=== PATIENT | female | born 1990 | race Caucasian/White ===

== ENCOUNTER 2016-05-14 08:45 | Emergency (ER) | payer MEDICAID, OTHER ==
[~2016-05-14] VITALS: Wt 65.0 kg
[~2016-05-14 08:45] MED LIST: CEPH-443 PO; IBUP-1542 PO; METF-382 PO; PHEN-538 PO
--- NOTE | 2016-05-14 09:22 | ERD ---
ER Documentation Chief Complaint Date/Time DATE: 05/14/16 TIME: 09:17 Chief Complaint R SIDE BUTTOCKS ABSCESS FOR 4 DAYS. SOME BLEEDING NO FEVERS HPI 25-year-old female with a history of diabetes presents to the emergency department complaining of right-sided rectal pain and swelling. Patient states the symptoms began 4 days ago and have gradually worsened. Patient states she is currently a constant 7 out of 10 pain located to the right buttock area and worse with pressure to the area or sitting down. Patient has attempted to treat her pain symptoms with Tylenol at home with little relief. Patient denies any fever, chills, nausea, vomiting, diarrhea, abdominal pain, or bleeding. Patient up-to-date on all vaccinations. Patient states that she has been noncompliant with diabetic medication therapy due to her insurance. Patient is requesting a refill for metformin today. ROS All systems reviewed and are negative except as per history of present illness. Medications Home Meds Active Scripts Bacitracin* (Bacitracin Oint (UD)*) 1 Applic Oint, 1 APPLIC TOP ONCE for 5 Days , PKT APPLY TO Prov:LIV BISWAS PA-C 05/14/16 Naproxen* (Naprosyn*) 500 Mg Tablet, 500 MG PO BID for 7 Days, TAB Prov:LIV BISWAS PA-C 05/14/16 Metformin Hcl* (Metformin Hcl*) 500 Mg Tablet, 500 MG PO WITH BREAKFAST DINNE, # 60 TAB Prov:LIV BISWAS PA-C 05/14/16 Trimethoprim-Sulfamethoxazole* (Bactrim*) 400-80 Mg Tab, 1 TAB PO BID, #20 TAB Prov:LIV BISWAS PA-C 05/14/16 Cephalexin* (Cephalexin*) 500 Mg Capsule, 500 MG PO Q8, #21 CAP Prov:LIV BISWAS PA-C 05/14/16 Ibuprofen* (Motrin*) 600 Mg Tab, 600 MG PO Q6, #14 TAB Prov:SHARI ARIAS MD 10/30/14 Phenazopyridine Hcl* (Pyridium*) 200 Mg Tab, 200 MG PO TID Y for DYSURIA, #6 TAB Prov:SHARI ARIAS MD 10/30/14 Cephalexin* (Keflex*) 500 Mg Capsule, 500 MG PO QID for 7 Days, CAP Prov:SHARI ARIAS MD 10/30/14 Reported Medications Metformin Hcl* (Metformin Hcl*) 500 Mg Tablet, 500 MG PO BID, TAB 02/21/14 Allergies Allergies: Coded Allergies: No Known Allergies (Verified Allergy, Mild, 02/21/14) PMhx/Soc History of Surgery: Yes (C SECTION) Anesthesia Reaction: No Hx Neurological Disorder: No Hx Respiratory Disorders: No Hx Cardiac Disorders: No Hx Psychiatric Problems: No Hx Miscellaneous Medical Probl: Yes (DM) Hx Alcohol Use: No Hx Substance Use: No Hx Tobacco Use: No Physical Exam Vitals Vital Signs Date Time Temp Pulse Resp B/P Pulse Ox O2 Delivery O2 Flow Rate FiO2 05/14/16 08:49 98.2 94 20 134/81 98 Physical Exam Const: Well-developed, well-nourished, in no acute distress Head: Atraumatic Eyes: Normal Conjunctiva ENT: Normal External Ears, Nose and Mouth. Neck: Full range of motion..~ No meningismus. Resp: Clear to auscultation bilaterally Cardio: Regular rate and rhythm, no murmurs Abd: Soft, non tender, non distended. Normal bowel sounds Skin: 1.5 cm area of induration and fluctuance located within the right sided gluteal fold 2 cm from the anus. No evidence of hemorrhoid formation. No petechiae or rashes Back: No midline or flank tenderness Ext: No cyanosis, or edema Neur: Awake and alert Psych: Normal Mood and Affect Results 24 hrs Current Medications Medications (Trade) Dose Ordered Sig/Rey Route PRN Reason Start Time Stop Time Status Last Admin Dose Admin Lidocaine/ Epinephrine (Xylocaine 1%/ Epi (Mdv) 20 ml) 20 ml ONCE ONCE INFIL 05/14/16 09:30 05/14/16 09:31 Cancel Ibuprofen (Motrin) 600 mg ONCE ONCE PO 05/14/16 09:30 05/14/16 09:31 DC 05/14/16 09:18 Lidocaine/ Epinephrine (Xylocaine 1%/ Epi) 20 ml ONCE INJ 05/14/16 09:31 05/14/16 09:32 DC Procedures/MDM Abscess Incision and Drainage with irrigation by me: Location: Right-sided gluteal fold Anesthesia: Local 1% Lidocaine Technique: Irrigated. Disrupted loculations w/ instrumentation Packing: None Complications: Neurovascularly intact post procedure 48 hour wound check. Scar minimization instructions given. Patient's skin symptoms have stabilized while they have been evaluated in the department and are appropriate for outpatient care and work up. Exam and w/u not consistent w/ sepsis, deep space infection, or foreign body. Low suspicion for perianal fistula, rectal prolapse, anal fissure. Patient counseled on the importance of continuing antibiotic therapy. Patient provided with a refill on metformin. Patient return within 48 hours for wound check. Based on patient's history of present illness and physical examination the decision was made to discharge. The patient was re-evaluated after ED treatment and stabilizing measures, and symptoms have improved. There is no evidence of life threatening injuries or illnesses at this time. On re-examination, patient resting in no distress, stable vital signs, reports feeling better and safe for discharge with outpatient follow up with PMD in 1-2 days. Patient given return precautions. Departure Diagnosis: Primary Impression: Abscess Additional Impressions: Buttock pain Diabetes Diabetes mellitus type: type 2 Diabetes mellitus complication status: with unspecified complications Diabetes mellitus shelter insulin use: unspecified long term care phlebotomist insulin use status Qualified Code: E11.8 - Type 2 diabetes mellitus with complication, unspecified shelter insulin use status LIV BISWAS PA-C May 14, 2016 09:22
[2016-05-14] MEDS ORDERED: IBUPROFEN 600 MG TAB PO ONE (09:30)
[2016-05-14] MEDS ORDERED: LIDOCAINE 1%/EPI (MDV) 20 ML INJ INFIL ONE (09:30)
[2016-05-14] MEDS ORDERED: LIDOCAINE 1%/EPI 30 ML INJ INJ SCH (09:31)
[2016-05-14] MEDS ORDERED: METF-382 PO (09:44)
[2016-05-14] MEDS ORDERED: BACTRIM PO (09:44)
[2016-05-14] MEDS ORDERED: BACITUD TOP (09:44)
[2016-05-14] MEDS ORDERED: NAPR-260 PO (09:44)
[2016-05-14] MEDS ORDERED: CEPH500C PO (09:44)
== END 2016-05-14 09:55 | disposition home or self-care (01) ==
LOC: FTE 08:45
DX: L02.31 Cutaneous abscess of buttock (principal); M54.5 Low back pain; E11.8 Type 2 diabetes mellitus with unspecified complications; Z79.84 Long term (current) use of oral hypoglycemic drugs
CPT/HCPCS: 10061; Z7502; Z7610

== ENCOUNTER 2016-05-16 11:03 | Emergency (ER) | payer MEDICAID ==
[~2016-05-16] VITALS: Wt 71.0 kg
[~2016-05-16 11:03] MED LIST changes: +BACITUD TOP; +BACTRIM PO; +CEPH500C PO; +NAPR-260 PO
[2016-05-16] MEDS ORDERED: FAMOTIDINE 20 MG TAB PO ONE (11:30)
[2016-05-16 11:41] LABS: URINE BLOOD (Dip) POC Negative (NEGATIVE)
[2016-05-16 13:24] VITALS: TEMP 98.1
--- NOTE | 2016-05-16 14:14 | ERD ---
ER Documentation Chief Complaint Date/Time DATE: 05/16/16 TIME: 14:07 Chief Complaint LOWER ABD PAIN WITH N/V HPI This is a 25-year-old female presenting to the emergency department for wound recheck. Patient states she was here 2 days ago for gluteal abscess incision and drainage. Patient states she was told to come back in 2 days for wound check. No fever, erythema or warmth around the area. Patient is currently on Bactrim and Keflex. Patient states last night she had lower abdominal pain with nausea today symptoms have resolved. Currently patient denies any nausea, vomiting. Or abdominal pain. Patient states she is having some acid reflux. Patient also has history of type 2 diabetes and recently started back on her metformin. Patient does not check her blood glucose at home. ROS All systems reviewed and are negative except as per history of present illness. Medications Home Meds Active Scripts Bacitracin* (Bacitracin Oint (UD)*) 1 Applic Oint, 1 APPLIC TOP ONCE for 5 Days , PKT APPLY TO Prov:LIV BISWAS-Zach 05/14/16 Naproxen* (Naprosyn*) 500 Mg Tablet, 500 MG PO BID for 7 Days, TAB Prov:LIV BISWAS-C 05/14/16 Metformin Hcl* (Metformin Hcl*) 500 Mg Tablet, 500 MG PO WITH BREAKFAST DINNE, # 60 TAB Prov:LIV BISWAS-Zach 05/14/16 Trimethoprim-Sulfamethoxazole* (Bactrim*) 400-80 Mg Tab, 1 TAB PO BID, #20 TAB Prov:LIV BISWAS PA-C 05/14/16 Cephalexin* (Cephalexin*) 500 Mg Capsule, 500 MG PO Q8, #21 CAP Prov:LIV BISWAS PA-C 05/14/16 Ibuprofen* (Motrin*) 600 Mg Tab, 600 MG PO Q6, #14 TAB Prov:SHARI ARIAS MD 10/30/14 Phenazopyridine Hcl* (Pyridium*) 200 Mg Tab, 200 MG PO TID Y for DYSURIA, #6 TAB Prov:SHARI ARIAS MD 10/30/14 Cephalexin* (Keflex*) 500 Mg Capsule, 500 MG PO QID for 7 Days, CAP Prov:SHARI ARIAS MD 10/30/14 Reported Medications Metformin Hcl* (Metformin Hcl*) 500 Mg Tablet, 500 MG PO BID, TAB 02/21/14 Allergies Allergies: Coded Allergies: No Known Allergies (Verified Allergy, Mild, 02/21/14) PMhx/Soc History of Surgery: Yes (C SECTION) Anesthesia Reaction: No Hx Neurological Disorder: No Hx Respiratory Disorders: No Hx Cardiac Disorders: No Hx Psychiatric Problems: No Hx Miscellaneous Medical Probl: Yes () Hx Alcohol Use: No Hx Substance Use: No Hx Tobacco Use: No Physical Exam Vitals Vital Signs Date Time Temp Pulse Resp B/P Pulse Ox O2 Delivery O2 Flow Rate FiO2 05/16/16 13:24 98.1 05/16/16 11:06 98.0 81 18 153/88 99 Physical Exam Const: Acute not ill-appearing Head: Atraumatic Eyes: Normal Conjunctiva ENT: Normal External Ears, Nose and Mouth. Neck: Full range of motion..~ No meningismus. Resp: Clear to auscultation bilaterally Cardio: Regular rate and rhythm, no murmurs Abd: Soft, non tender, non distended. Normal bowel sounds Skin: Small area of incision to right gluteal fold near anus. No fluctuance, surrounding erythema or warmth. Back: No midline or flank tenderness Ext: No cyanosis, or edema Neur: Awake and alert Psych: Normal Mood and Affect Results 24 hrs Laboratory Tests Test 05/16/16 11:40 05/16/16 12:41 Bedside Urine pH (LAB) 6.0 Bedside Urine Protein (LAB) 1+ Bedside Urine Glucose (UA) 0.50% Bedside Urine Ketones (LAB) 4+ Bedside Urine Blood Negative Bedside Urine Nitrite (LAB) Negative Bedside Urine Leukocyte Esterase (L Negative Bedside Glucose 230mg/dL Current Medications Medications (Trade) Dose Ordered Sig/Rey Route PRN Reason Start Time Stop Time Status Last Admin Dose Admin Famotidine (Pepcid) 20 mg ONCE ONCE PO 05/16/16 11:30 05/16/16 11:31 DC 05/16/16 11:40 Procedures/MDM ED COURSE: The patient was stable throughout ED course. I kept the patient and/or family informed of laboratory and diagnostic imaging results throughout the ED course. Laboratory Urine dip 4+ ketones, 1+ protein, 0.5% glucose Urine negative Accu-check is 230. MDM: This is a 25-year-old female presenting to the emergency department for wound recheck. Wound shows no evidence of infection, foreign body, neurologic injury, vascular injury, open joint or tendon laceration. Patient appropriate for outpatient follow up. Instructed patient to continue taking medications as prescribed. Remains afebrile. Patient had lower abdominal pain with nausea and vomiting yesterday. No symptoms today. Patient currently denies abdominal pain, nausea, vomiting or diarrhea. Urine shows 4+ ketones and Accu-Chek 230. Patient is stable and appropriate for discharge home. Low suspicion for cellulitis, deep space infection, , UTI or pyelonephritis. Patient is appropriate for outpatient management. Return to ED for any high fever, chest pain, difficulty breathing, shortness breath, wheezing, vomiting, diarrhea, abdominal pain or any new or worsening symptoms. Patient verbalizes understanding. All questions answered at discharge. Departure Diagnosis: Primary Impression: Wound check, abscess Additional Impression: Diabetes Diabetes mellitus type: type 2 Diabetes mellitus complication status: with unspecified complications Diabetes mellitus adjunct faculty for medical terminology insulin use: unspecified snf insulin use status Qualified Code: E11.8 - Type 2 diabetes mellitus with complication, unspecified snf insulin use status Condition: Stable Patient Instructions: Wound Care, DIABETES, General Info Additional Instructions: Return to ED for any high fever, chest pain, difficulty breathing, shortness breath, wheezing, vomiting, diarrhea, abdominal pain or any new or worsening symptoms. Drink plenty of fluids Call your primary care doctor TOMORROW for an appointment during the next 2-3 days.See the doctor sooner or return here if your condition worsens before your appointment time. JOSELINE SANTOS NP May 16, 2016 14:14
== END 2016-05-16 13:25 | disposition home or self-care (01) ==
LOC: FTE 11:03
DX: Z48.01 Encounter for change or removal of surgical wound dressing (principal); E11.8 Type 2 diabetes mellitus with unspecified complications; Z79.84 Long term (current) use of oral hypoglycemic drugs
CPT/HCPCS: 81003; 82962; Z7502; Z7610; 99282

== ENCOUNTER 2016-09-14 16:23 | Emergency (ER) | payer MEDICAID, OTHER ==
[~2016-09-14] VITALS: Ht 154.9 cm; Wt 65.5 kg
[~2016-09-14 16:23] MED LIST changes: -METF-382 PO; +METF500T4 PO
[2016-09-14 16:29] VITALS: Ht 154.9 cm; Wt 65.5 kg
[2016-09-14 18:47] LABS: BASOPHILS % 0.5 % (0.0-2.0); EOSINOPHILS # 0.1 10^3/ul (0.0-0.5); EOSINOPHILS % 1.5 % (0.0-7.0); HEMATOCRIT 42.2 % (37.0-47.0); HEMOGLOBIN 14.5 g/dl (12.0-16.0); LYMPHOCYTES # 2.7 10^3/ul (0.8-2.9); MEAN CORPUSCULAR HEMOGLOBIN 26.9 pg (29.0-33.0); MEAN CORPUSCULAR HGB CONC 34.4 g/dl (32.0-37.0); MEAN CORPUSCULAR VOLUME 78.3 fl (82.0-101.0); MEAN PLATELET VOLUME 9.8 fl (7.4-10.4); MONOCYTE # 0.5 10^3/ul (0.3-0.9); MONOCYTES % 6.4 % (0.0-11.0); NEUTROPHIL # 4.8 10^3/ul (1.6-7.5); NEUTROPHILS % 58.4 % (39.0-77.0); PLATELET COUNT 372 10^3/UL (140-415); RED BLOOD COUNT 5.39 10^6/ul (4.20-5.40); RED CELL DISTRIBUTION WIDTH 12.2 % (11.5-14.5); WHITE BLOOD COUNT 8.2 10^3/ul (4.8-10.8)
[2016-09-14 19:08] LABS: ALANINE AMINOTRANSFERASE 33 IU/L (13-69); ALBUMIN 4.4 g/dl (3.3-4.9); ALBUMIN/GLOBULIN RATIO 1.29; ALKALINE PHOSPHATASE 116 IU/L (42-121); ANION GAP 17 (8-16); ASPARTATE AMINO TRANSFERASE 14 IU/L (15-46); BILIRUBIN,INDIRECT 0.3 mg/dl (0-1.1); BILIRUBIN,TOTAL 0.3 mg/dl (0.2-1.3); BLOOD UREA NITROGEN 14 mg/dl (7-20); CALCIUM 9.1 mg/dl (8.4-10.2); CARBON DIOXIDE 27 mmol/L (21-31); CHLORIDE 94 mmol/L (97-110); CREATININE 0.48 mg/dl (0.44-1.00); POTASSIUM 3.9 mmol/L (3.5-5.1); SODIUM 134 mmol/L (135-144); TOTAL PROTEIN 7.8 g/dl (6.1-8.1)
[2016-09-14 19:16] LABS: GLUCOSE 448 mg/dl (70-220)
[2016-09-14] MEDS ORDERED: SOD CHLORIDE 0.9% 1,000 ML IV STA (19:17)
--- NOTE | 2016-09-14 19:24 | RADRPT ---
PROCEDURE: XR Chest. CLINICAL INDICATION: Chest pain. TECHNIQUE: Single frontal view of the chest. COMPARISON: None. FINDINGS: Hypoinflated lungs accentuate pulmonary vascular markings and the cardiac silhouette. The cardiomediastinal silhouette is within normal limits. Pulmonary vascular crowding at the bilater al lung bases. The lungs are clear. No signs of pleural fluid or pneumothorax are seen. The osseous structures and soft tissues are unremarkable. IMPRESSION: 1. Hypoinflated lungs. 2. No evidence for active cardiopulmonary disease. RPTAT: [facility] Physician Kenisha Date Time Electronically viewed and signed by Physician Kenisha on 09/14/2016 19:24 RS/
[2016-09-14 19:38] LABS: TROPONIN-I < 0.012 ng/ml (0.00-0.12)
--- NOTE | 2016-09-14 19:52 | ERD ---
ER Documentation Chief Complaint Date/Time DATE: 09/14/16 TIME: 19:52 Chief Complaint PT with Intermittent CP X 2 week radiating to L arm, sent by PCP. HPI This is a 26-year-old female presenting to the emergency department complaining of intermittent chest pain for the past 2 weeks. Patient describes it as intermittent chest pain, moderate in severity radiating down her left arm with associated numbness. Patient denies any shortness of breath. She denies any history of chest pain, anxiety. Patient denies any history of hypertension however she states that she does have a history of prediabetes, she states she does not want any medications. Patient states that her last meal was a bag of hot spicy cheetos does within an hour prior to being seen ROS All systems reviewed and are negative except as per history of present illness. Medications Home Meds Active Scripts Metformin* (Glucophage*) 500 Mg Tab, 500 MG PO BID, #60 TAB Prov:KELSY KERNS PA-C 09/14/16 Bacitracin* (Bacitracin Oint (UD)*) 1 Applic Oint, 1 APPLIC TOP ONCE for 5 Days , PKT APPLY TO Prov:LIV BISWAS PA-C 05/14/16 Naproxen* (Naprosyn*) 500 Mg Tablet, 500 MG PO BID for 7 Days, TAB Prov:LIV BISWAS PA-C 05/14/16 Metformin Hcl* (Metformin Hcl*) 500 Mg Tablet, 500 MG PO WITH BREAKFAST DINNE, # 60 TAB Prov:LIV BISWAS PA-C 05/14/16 Trimethoprim-Sulfamethoxazole* (Bactrim*) 400-80 Mg Tab, 1 TAB PO BID, #20 TAB Prov:LIV BISWAS PA-C 05/14/16 Cephalexin* (Cephalexin*) 500 Mg Capsule, 500 MG PO Q8, #21 CAP Prov:LIV BISWAS PA-C 05/14/16 Ibuprofen* (Motrin*) 600 Mg Tab, 600 MG PO Q6, #14 TAB Prov:SHARI ARIAS MD 10/30/14 Phenazopyridine Hcl* (Pyridium*) 200 Mg Tab, 200 MG PO TID Y for DYSURIA, #6 TAB Prov:SHARI ARIAS MD 10/30/14 Cephalexin* (Keflex*) 500 Mg Capsule, 500 MG PO QID for 7 Days, CAP Prov:SHARI ARIAS MD 10/30/14 Reported Medications Metformin Hcl* (Metformin Hcl*) 500 Mg Tablet, 500 MG PO BID, TAB 02/21/14 Allergies Allergies: Coded Allergies: No Known Allergies (Verified Allergy, Mild, 02/21/14) PMhx/Soc History of Surgery: Yes (C SECTION) Anesthesia Reaction: No Hx Neurological Disorder: No Hx Respiratory Disorders: No Hx Cardiac Disorders: No Hx Psychiatric Problems: No Hx Miscellaneous Medical Probl: Yes () Hx Alcohol Use: No Hx Substance Use: No Hx Tobacco Use: No Physical Exam Vitals Vital Signs Date Time Temp Pulse Resp B/P Pulse Ox O2 Delivery O2 Flow Rate FiO2 09/14/16 16:29 98.5 76 18 121/82 99 Physical Exam GENERAL: no acute distress, non-toxic appearing, sitting up in bed HENT: normocephalic/atraumatic EYES: conjunctiva is normal NECK: no noticeable or palpable swelling, no carotid bruits, no JVD CARDIOVASCULAR: RRR, good S1S2, no murmurs or gallops heard PULM: clear to auscultation, no use of accessory muscles, no crackles or wheezes. ABDOMEN: normal bowel sounds, abdomen soft and nontender EXT: no edema, cyanosis or clubbing MUSCULOSKELETAL: 5/5 strength, normal range of motion, no swollen or erythematous joints. NEURO: alert and oriented SKIN: no rashes, skin warm and dry, no erythematous areas PSYCH: normal mood and mentation, denies suicidal or homicidal ideation and thoughts Result Diagram: 09/14/16181409/14/161814 Results 24 hrs Laboratory Tests Test 09/14/16 18:15 09/14/16 20:55 09/14/16 22:06 09/14/16 23:06 White Blood Count 8.210^3/ul Red Blood Count 5.3910^6/ul Hemoglobin 14.5g/dl Hematocrit 42.2% Mean Corpuscular Volume 78.3fl Mean Corpuscular Hemoglobin 26.9pg Mean Corpuscular Hemoglobin Concent 34.4g/dl Red Cell Distribution Width 12.2% Platelet Count 99587^3/UL Mean Platelet Volume 9.8fl Neutrophils % 58.4% Lymphocytes % 33.0% Monocytes % 6.4% Eosinophils % 1.5% Basophils % 0.5% Nucleated Red Blood Cells % 0.0/100WBC Neutrophils # 4.810^3/ul Lymphocytes # 2.710^3/ul Monocytes # 0.510^3/ul Eosinophils # 0.110^3/ul Basophils # 0.010^3/ul Nucleated Red Blood Cells # 0.010^3/ul Sodium Level 134mmol/L Potassium Level 3.9mmol/L Chloride Level 94mmol/L Carbon Dioxide Level 27mmol/L Anion Gap 17 Blood Urea Nitrogen 14mg/dl Creatinine 0.48mg/dl Glucose Level 448mg/dl Calcium Level 9.1mg/dl Total Bilirubin 0.3mg/dl Direct Bilirubin 0.00mg/dl Indirect Bilirubin 0.3mg/dl Aspartate Amino Transf (AST/SGOT) 14IU/L Alanine Aminotransferase (ALT/SGPT) 33IU/L Alkaline Phosphatase 116IU/L Troponin I < 0.012ng/ml Total Protein 7.8g/dl Albumin 4.4g/dl Globulin 3.40g/dl Albumin/Globulin Ratio 1.29 Bedside Glucose 332mg/dL 332mg/dL 304mg/dL Current Medications Medications (Trade) Dose Ordered Sig/Rey Route PRN Reason Start Time Stop Time Status Last Admin Dose Admin Sodium Chloride (NS) 1,000 ml @ 2,000 mls/hr Q30M STAT IV 09/14/16 19:17 09/14/16 19:46 DC 09/14/16 19:39 Procedures/MDM This is a 26-year-old female presenting to the emergency department complaining of intermittent chest pain. Patient was found to have a glucose level of 458 today. IV access is established, patient was given 2 L of normal saline. After couple hours diarrhea checked the with Accu-Chek and glucose level went down to 302. There was no evidence of DKA or hyperosmolar state. Patient's CMP was unremarkable. I placed patient on metformin 500 mg twice daily and I discussed with her to follow-up with her primary care physician for further evaluation and management. In regards to her chest pain there was no evidence of ACS, pulmonary embolism, pneumonia. EKG was done in the ED there was no evidence of STEMI. Chest x-ray did not show any evidence of infiltrates, pneumothorax or pleural effusion. Troponin was negative. Patient did have hot spicy cheetos right prior to coming to the ER, gastritis, likely the cause of her chest pain. EKG: read and signed off by myself and dr. spencer Rate/Rhythm: [Normal Sinus Rhythm] QRS, ST, T-waves: [No changes consistent w/ acute ischemia] Impression: [No evidence of ischemia or arrhythmia] She is appropriate to be discharged home to follow-up with primary care physician. Discussed return to the ER for any worsening sinuses. Patient understands and agrees with this plan Departure Diagnosis: Primary Impression: Diabetes Additional Impression: Chest pain Condition: Stable KELSY KERNS PA-C Sep 14, 2016 19:52
[2016-09-14] MEDS ORDERED: METF500T4 PO (22:36)
[2016-09-14 23:29] VITALS: BP 135/77; PULSE 78; RESP 18; TEMP 97.7
== END 2016-09-14 23:28 | disposition home or self-care (01) ==
LOC: FTE 16:23
DX: E11.9 Type 2 diabetes mellitus without complications (principal); Z79.84 Long term (current) use of oral hypoglycemic drugs
CPT/HCPCS: 71010; 80053; 82962; 84484; 85025; J7030; Z7502

== ENCOUNTER 2018-04-15 21:04 | Inpatient (IN) | payer OTHER ==
[~2018-04-15] VITALS: Ht 154.9 cm; Wt 67.0 kg
[~2018-04-15 21:04] MED LIST changes: +METF-849 PO; +METF500T24 PO; -METF500T4 PO; -NAPR-260 PO; +NAPR-985 PO
[2018-04-16] VITALS (14 sets, daily range): BP systolic 106–131; BP diastolic 46–95; PULSE 71–99; RESP 11–26; Ht 154.9 cm; Wt 67.0 kg
[2018-04-16] MEDS ORDERED: ONDANSETRON (ODT) 4 MG TAB ODT STA (01:41)
[2018-04-16] MEDS ORDERED: ACETAMINOPHEN 325 MG TAB PO STA (01:41)
[2018-04-16] MEDS ORDERED: SOD CHLORIDE 0.9% 1,000 ML IV STA (02:25)
[2018-04-16] MEDS ORDERED: SOD CHLORIDE 0.9% 1,000 ML IV SCH (04:23)
[2018-04-16] MEDS ORDERED: DEXTROSE 10 %/0.45 % NACL 1,000 ML IV SCH (04:23)
[2018-04-16] MEDS ORDERED: NS + KCL 30 MEQ 1,000 ML IV SCH ×2 (04:23→05:00)
[2018-04-16] MEDS ORDERED: D10/0.45% NACL + KCL 40 MEQ 1,000 ML IV SCH (04:23)
[2018-04-16] MEDS ORDERED: NS + KCL 40 MEQ 1,000 ML IV SCH (04:23)
[2018-04-16] MEDS ORDERED: INSULIN REGULAR, HUMAN 100 UNIT in SOD CHLORIDE 0.9% 99 ML IV SCH ×2 (04:30)
[2018-04-16] MEDS ORDERED: DEXTROSE 50% 50 ML SYRINGE IV PRN ×4 (04:30→09:30)
[2018-04-16] MEDS ORDERED: LACTATED RINGER'S 670 ML IV ONE (04:30)
--- NOTE | 2018-04-16 04:41 | ERD ---
ER Documentation Chief Complaint Chief Complaint BODY ACHES, FEVER X 1 DAY HPI The patient was initially seen by the PA in ED 2 The patient is a 27-year-old female, presenting to the ER because of fever, low back pain, cough intermittently for 1 week, worse for the last 2 days. She denies chest pain, dyspnea, abdominal pain, dysuria. She does not smoke nor drink Medical history: Diabetes mellitus Surgical history: 2 ROS All systems reviewed and are negative except as per history of present illness. Medications Home Meds Active Scripts Metformin* (Glucophage*) 500 Mg Tab, 500 MG PO BID, #60 TAB Prov:KELSY KERNSC 09/14/16 Bacitracin* (Bacitracin Oint (UD)*) 1 Applic Oint, 1 APPLIC TOP ONCE for 5 Days, PKT APPLY TO Prov:LIV BISWAS PA-C 05/14/16 Naproxen* (Naprosyn*) 500 Mg Tablet, 500 MG PO BID for 7 Days, TAB Prov:LIV BISWAS PA-C 05/14/16 Metformin Hcl* (Metformin Hcl*) 500 Mg Tablet, 500 MG PO WITH BREAKFAST DINNE, #60 TAB Prov:LIV BISWAS PA-C 05/14/16 Trimethoprim-Sulfamethoxazole* (Bactrim*) 400-80 Mg Tab, 1 TAB PO BID, #20 TAB Prov:LIV BISWAS PA-C 05/14/16 Cephalexin* (Cephalexin*) 500 Mg Capsule, 500 MG PO Q8, #21 CAP Prov:LIV BISWAS PA-C 05/14/16 Ibuprofen* (Motrin*) 600 Mg Tab, 600 MG PO Q6, #14 TAB Prov:SHARI ARIAS MD 10/30/14 Phenazopyridine Hcl* (Pyridium*) 200 Mg Tab, 200 MG PO TID PRN for DYSURIA, #6 TAB Prov:SHARI ARIAS MD 10/30/14 Cephalexin* (Keflex*) 500 Mg Capsule, 500 MG PO QID for 7 Days, CAP Prov:SHARI ARIAS MD 10/30/14 Reported Medications Metformin Hcl* (Metformin Hcl*) 500 Mg Tablet, 500 MG PO BID, TAB 02/21/14 Allergies Allergies: Coded Allergies: No Known Allergies (Verified Allergy, Mild, 04/16/18) PMhx/Soc History of Surgery: Yes () Anesthesia Reaction: No Hx Neurological Disorder: No Hx Respiratory Disorders: No Hx Cardiac Disorders: No Hx Psychiatric Problems: No Hx Miscellaneous Medical Probl: Yes (DM(2010) uncompliant to meds (2018)) Hx Alcohol Use: No Hx Substance Use: No Hx Tobacco Use: No Smoking Status: Never smoker Physical Exam Vitals Vital Signs Date Temp Pulse Resp B/P (MAP) Pulse Ox O2 O2 Flow FiO2 Time Delivery Rate 04/15/18 99.0 107 18 148/89 100 21:44 (108) Physical Exam Const: No acute distress. Head: Atraumatic. Eyes: Normal Conjunctiva. ENT: Normal External Ears, Nose and Mouth. Neck: Full range of motion. No meningismus. Resp: Clear to auscultation bilaterally. Cardio: Regular tachycardic Abd: Soft, non distended, normal bowel sounds, non tender. Skin: No petechiae or rashes. Back: No midline or flank tenderness. Ext: No cyanosis, or edema. Neur: Awake and alert. No focal deficit Psych: Normal Mood and Affect. Result Diagram: 04/16/18 0410 04/16/18 0235 Results 24 hrs Laboratory Tests Test 04/16/18 01:50 04/16/18 02:06 04/16/18 02:35 04/16/18 03:39 Urine Color STRAW Urine Clarity CLEAR Urine pH 5.0 Urine Specific 1.032 [place] Urine Ketones 2+ mg/dL Urine Nitrite NEGATIVE mg/dL Urine Bilirubin NEGATIVE mg/dL Urine NEGATIVE mg/dL Urobilinogen Urine Leukocyte NEGATIVE Clay/ul Esterase Urine Hemoglobin NEGATIVE mg/dL Urine Glucose 3+ mg/dL Urine Total NEGATIVE mg/dl Protein POC Beta HCG, NEGATIVE Qualitative Sodium Level 138 mmol/L Potassium Level 3.9 mmol/L Chloride Level 102 mmol/L Carbon Dioxide 18 mmol/L Level Anion Gap 18 Blood Urea 9 mg/dl Nitrogen Creatinine 0.37 mg/dl Est Glomerular > 60 mL/min Filtrat Rate mL/min Glucose Level 337 mg/dl Calcium Level 9.9 mg/dl Total Bilirubin 0.4 mg/dl Direct Bilirubin 0.00 mg/dl Indirect 0.4 mg/dl Bilirubin Aspartate Amino 12 IU/L Transf (AST/SGOT) Alanine 8 IU/L Aminotransferase (ALT/SGPT) Alkaline 143 IU/L Phosphatase Total Protein 8.4 g/dl Albumin 4.5 g/dl Globulin 3.90 g/dl Albumin/Globulin 1.15 Ratio Bedside Glucose 266 mg/dL Test 04/16/18 03:57 04/16/18 04:10 04/16/18 04:11 04/16/18 04:59 Blood Gas Blood venous Specimen Source Arterial Blood 04/16/2018 4:05:22 Date Drawn AM Arterial Blood VENOUS LINE Gas Puncture Site Yong Test N/A Venous Blood pH 7.315 Venous Blood pCO2 31.9 mmHG (Temp Corrected) Venous Blood pO2 43.3 mmHG (Temp Corrected) Venous Blood HCO3 15.9 mmol/L Venous Blood 76.9 mmHG Oxygen Saturation Venous Blood Base -9.0 mmol/L Excess Venous Blood 14.4 g/dl Total Hemoglobin Venous Blood 76.5 % Oxyhemoglobin Venous Blood 0.3 % Methemoglobin Carboxyhemoglobin 0.2 % Blood Gas 37.0 C Temperature Blood Gas Actual 18 Respiration Rate Blood Gas ROOM AIR Modality FiO2 21.0 % Blood Gas D CASEY [facility] Notified Whom Blood Gas 04/16/2018 4:12:35 Notified Time AM White Blood Count 11.2 10^3/ul Red Blood Count 4.96 10^6/ul Hemoglobin 13.0 g/dl Hematocrit 39.5 % Mean Corpuscular 79.6 fl Volume Mean Corpuscular 26.2 pg Hemoglobin Mean Corpuscular 32.9 g/dl Hemoglobin Concen t Red Cell 12.2 % Distribution Width Platelet Count 298 10^3/UL Mean Platelet 9.6 fl Volume Immature 0.400 % Granulocytes % Neutrophils % 72.6 % Lymphocytes % 15.4 % Monocytes % 10.9 % Eosinophils % 0.4 % Basophils % 0.3 % Nucleated Red 0.0 /100WBC Blood Cells % Immature 0.050 10^3/ul Granulocytes # Neutrophils # 8.2 10^3/ul Lymphocytes # 1.7 10^3/ul Monocytes # 1.2 10^3/ul Eosinophils # 0.1 10^3/ul Basophils # 0.0 10^3/ul Nucleated Red 0.0 10^3/ul Blood Cells # POC Venous 1.1 mmol/L Lactate Bedside Glucose 296 mg/dL Current Medications Medications Dose Sig/Rey Start Time Status Last (Trade) Ordered Route PRN Stop Time Admin Dose Reason Admin 650 mg ONCE STAT 04/16/18 DC 04/16/18 Acetaminophen PO 01:41 04/16/18 01:56 (Tylenol 01:43 Tab) Ondansetron 4 mg ONCE STAT 04/16/18 DC 04/16/18 HCl (Zofran ODT 01:41 04/16/18 01:56 Odt) 01:43 Sodium 1,000 ml @ Q1H STAT 04/16/18 DC 04/16/18 Chloride 1,000 mls/hr IV 02:25 04/16/18 02:39 03:24 Potassium 1,000 ml @ Q0M IV 04/16/18 Chloride/Sodi 0 mls/hr 04:23 um Chloride Potassium 1,000 ml @ Q0M IV 04/16/18 Chloride/Dext 0 mls/hr 04:23 min/ Sod Cl Potassium 1,000 ml @ Q0M IV 04/16/18 DC Chloride/Sodi 0 mls/hr 04:23 04/16/18 um Chloride 04:36 Potassium 1,000 ml @ Q0M IV 04/16/18 Chloride/Dext 0 mls/hr 04:23 min/ Sod Cl Sodium 1,000 ml @ Q0M IV 04/16/18 Chloride 0 mls/hr 04:23 1,000 ml @ Q0M IV 04/16/18 Dextrose/Sodi 0 mls/hr 04:23 um Chloride Insulin 100 ml @ ER DKA 04/16/18 Human 6.7 mls/hr PROTOCOL IV 04:30 Regular 100 unit/ Sodium Chloride Lactated 670 ml @ ONCE ONCE 04/16/18 04/16/18 Ringer's 670 mls/hr IV 04:30 04/16/18 04:34 05:29 HYPOGLYCEM 04/16/18 Miscellaneous HYPOGLYCEMIA PROTOCOL PRN 04:30 TREATMENT XX Information .HYPOGLYCEMIA (* PROTOCOL Miscellaneous Pharmacy Order) Dextrose 50 ml Q15M PRN 04/16/18 (D50w IV 04:30 Syringe) .DECREASED GLUCOSE Dextrose 25 ml Q15M PRN 04/16/18 (D50w IV 04:30 Syringe) .DECREASED GLUCOSE Potassium 1,000 ml @ Q0M IV 04/16/18 Chloride/Sodi 0 mls/hr 05:00 um Chloride Procedures/MDM [place] [address] Radiology Main Line: [phone] DIAGNOSTIC IMAGING REPORT Patient: LEONID BARRAZA : 1990 Age: 27 Sex: F MR #: [id number] DOS: 04/16/18 0400 Ordering MD: ROSS OLEA PA-C Location: E/R Room/Bed: PROCEDURE: XR Chest. CLINICAL INDICATION: Fever TECHNIQUE: Portable single view of the chest COMPARISON: CHEST 09/14/2016 FINDINGS: Lung volumes are slightly improved. The lungs remain clear without focal infiltrate. The pleural spaces are clear without effusion or pneumothorax. The heart size and mediastinal contours are stable and within normal limits. Osseous structures are intact. IMPRESSION: No acute process seen within the chest. RPTAT: HSAF Physician Jan Date Time Electronically viewed and signed by Physician Jan on 04/16/2018 05:21 RF/ CC: ROSS OLEA PA-C [id number] MEDICAL MAKING DECISION: The patient is a 27-year-old female, presenting with acute mild DKA. She is treated via DKA protocol The differential diagnoses considered include but are not limited to medical noncompliance, dietary noncompliance, UTI, pneumonia, dehydration Critical Care: Time: 35 minutes excluding all billable procedures. Treatments/Evaluations: Close monitoring and treatment of unstable vital signs, cardiorespiratory, and neurologic status, while maintaining tight balance of fluid, respiratory, and cardiac interventions. Departure Diagnosis: Primary Impression: DKA (diabetic ketoacidoses) Condition: Stable Referrals: COMMUNITY CLINICS YOU HAVE RECEIVED A MEDICAL SCREENING EXAM AND THE RESULTS INDICATE THAT YOU DO NOT HAVE A CONDITION THAT REQUIRES URGENT TREATMENT IN THE EMERGENCY DEPARTMENT. FURTHER EVALUATION AND TREATMENT OF YOUR CONDITION CAN WAIT UNTIL YOU ARE SEEN IN YOUR DOCTORS OFFICE WITHIN THE NEXT 1-2 DAYS. IT IS YOUR RESPONSIBILITY TO MAKE AN APPOINTMENT FOR FOLOW-UP CARE. IF YOU HAVE A PRIMARY DOCTOR --you should call your primary doctor and schedule an appointment IF YOU DO NOT HAVE A PRIMARY DOCTOR YOU CAN CALL OUR PHYSICIAN REFERRAL HOTLINE AT IF YOU CAN NOT AFFORD TO SEE A PHYSICIAN YOU CAN CHOSE FROM THE FOLLOWING COMM [facility] [address] [facility] [address] [facility] [address] [facility] [address] [facility] [address] [facility]. [facility]. [address] Additional Instructions: I discussed the findings with the patient. I waiting to discuss the patient with the on-call hospitalist for her IPA Disclaimer: Inadvertent spelling and grammatical errors are likely due to EHR/dictation software use and do not reflect on the overall quality of patient care. Also, please note that the electronic time recorded on this note does not necessarily reflect the actual time of the patient encounter. MIGUEL BETTENCOURT MD Apr 16, 2018 04:41
[2018-04-16] MEDS ORDERED: ALBUTEROL/IPRATROPIUM (NEB) 3 ML AMP NEB PRN (06:30)
[2018-04-16] MEDS: D10/0.45% NACL + KCL 30 MEQ 1,000 ML IV SCH ×2 (06:56→12:56)
--- NOTE | 2018-04-16 08:28 | HP ---
Date/Time of Note Date/Time of Note DATE: 04/16/18 TIME: 08:27 Assessment/Plan VTE Prophylaxis Pharmacological prophylaxis: heparin Lines/Catheters IV Catheter Type (from Nrs): Saline Lock Assessment/Plan Assessment/Plan 27-year-old with type 2 diabetes admitted for a mildly K PLAN ICU monitoring Insulin DKA protocol, IV fluid, electrolyte replacement Check A1c Result Diagram: 04/16/18 0410 04/16/18 0545 Results 24hrs Laboratory Tests Test 04/16/18 01:50 04/16/18 02:06 04/16/18 02:35 04/16/18 03:39 Urine Color STRAW Urine Clarity CLEAR Urine pH 5.0 Urine Specific 1.032 H [place] Urine Ketones 2+ H Urine Nitrite NEGATIVE Urine Bilirubin NEGATIVE Urine NEGATIVE Urobilinogen Urine Leukocyte NEGATIVE Esterase Urine Hemoglobin NEGATIVE Urine Glucose 3+ H Urine Total NEGATIVE Protein POC Beta HCG, NEGATIVE Qualitative Sodium Level 138 Potassium Level 3.9 Chloride Level 102 Carbon Dioxide 18 L Level Anion Gap 18 H Blood Urea 9 Nitrogen Creatinine 0.37 L Est Glomerular > 60 Filtrat Rate mL/min Glucose Level 337 H Calcium Level 9.9 Total Bilirubin 0.4 Direct Bilirubin 0.00 Indirect 0.4 Bilirubin Aspartate Amino 12 L Transf (AST/SGOT ) Alanine 8 L Aminotransferase (ALT/SGPT) Alkaline 143 H Phosphatase Total Protein 8.4 H Albumin 4.5 Globulin 3.90 H Albumin/Globulin 1.15 Ratio Bedside Glucose 266 H Test 04/16/18 03:57 04/16/18 04:10 04/16/18 04:11 04/16/18 04:59 Blood Gas Blood venous Specimen Source Arterial Blood 04/16/2018 4:05:22 Date Drawn AM Arterial Blood VENOUS LINE Gas Puncture Site Yong Test N/A Venous Blood pH 7.315 L Venous Blood 31.9 L pCO2 (Temp Corrected) Venous Blood pO2 43.3 H (Temp Corrected) Venous Blood 15.9 L HCO3 Venous Blood 76.9 H Oxygen Saturation Venous Blood -9.0 L Base Excess Venous Blood 14.4 Total Hemoglobin Venous Blood 76.5 Oxyhemoglobin Venous Blood 0.3 Methemoglobin Carboxyhemoglobi 0.2 n Blood Gas 37.0 Temperature Blood Gas Actual 18 Respiration Rate Blood Gas ROOM AIR Modality FiO2 21.0 Blood Gas Dale PEÑA R[facility] Notified Whom Blood Gas 04/16/2018 4:12:35 Notified Time AM White Blood 11.2 #H Count Red Blood Count 4.96 Hemoglobin 13.0 Hematocrit 39.5 Mean Corpuscular 79.6 L Volume Mean Corpuscular 26.2 L Hemoglobin Mean Corpuscular 32.9 Hemoglobin Luci nt Red Cell 12.2 Distribution Width Platelet Count 298 Mean Platelet 9.6 Volume Immature 0.400 Granulocytes % Neutrophils % 72.6 Lymphocytes % 15.4 Monocytes % 10.9 Eosinophils % 0.4 Basophils % 0.3 Nucleated Red 0.0 Blood Cells % Immature 0.050 H Granulocytes # Neutrophils # 8.2 H Lymphocytes # 1.7 Monocytes # 1.2 H Eosinophils # 0.1 Basophils # 0.0 Nucleated Red 0.0 Blood Cells # Hemoglobin A1c 12.5 H POC Venous 1.1 Lactate Bedside Glucose 296 H Test 04/16/18 05:41 04/16/18 05:45 04/16/18 06:23 04/16/18 06:49 Bedside Glucose 244 H 215 Sodium Level 137 Potassium Level 4.0 Chloride Level 105 Carbon Dioxide 17 L Level Anion Gap 15 H Blood Urea 7 Nitrogen Creatinine 0.32 L Est Glomerular > 60 Filtrat Rate mL/min Glucose Level 251 H Calcium Level 8.6 Phosphorus Level 3.3 Magnesium Level 1.6 L Blood Gas Blood venous Specimen Source Arterial Blood 04/16/2018 6:02:00 Date Drawn AM Arterial Blood VENOUS LINE Gas Puncture Site Yong Test N/A Venous Blood pH 7.323 L Venous Blood 32.7 L pCO2 (Temp Corrected) Venous Blood pO2 58.7 H (Temp Corrected) Venous Blood 16.6 L HCO3 Venous Blood 88.3 H Oxygen Saturation Venous Blood -8.3 L Base Excess Venous Blood 13.5 Total Hemoglobin Venous Blood 87.8 Oxyhemoglobin Venous Blood 0.3 Methemoglobin Carboxyhemoglobi 0.3 n Blood Gas 37.0 Temperature Blood Gas Actual 18 Respiration Rate Blood Gas ROOM AIR Modality FiO2 21.0 Blood Gas D CASEY [facility] Notified Whom Blood Gas 04/16/2018 6:07:00 Notified Time AM Test 04/16/18 07:53 Bedside Glucose 249 H HPI/ROS Admit Date/Time Admit Date/Time Apr 16, 2018 at 05:44 Hx of Present Illness This is a 27-year-old female with a history of type 2 diabetes who presents to the ER complaining of nausea, cough and generalized weakness. Denied fever/chills, diarrhea or constipation. In the ER she is found to be in mild DKA. She has been started on DKA protocol. PMH/Family/Social Past Medical History Medications Current Medications Potassium Chloride/Sodium Chloride 1,000 ml @ 0 mls/hr Q0M IV ; Start 04/16/18 at 04:23 Potassium Chloride/Dextrose/ Sod Cl 1,000 ml @ 0 mls/hr Q0M IV ; Start 04/16/18 at 04:23 Potassium Chloride/Dextrose/ Sod Cl 1,000 ml @ 0 mls/hr Q0M IV Last administered on 04/16/18at 06:56; Admin Dose 150 MLS/HR; Start 04/16/18 at 04:23 Sodium Chloride 1,000 ml @ 0 mls/hr Q0M IV ; Start 04/16/18 at 04:23 Dextrose/Sodium Chloride 1,000 ml @ 0 mls/hr Q0M IV ; Start 04/16/18 at 04:23 Insulin Human Regular 100 unit/ Sodium Chloride 100 ml @ 6.7 mls/hr ER DKA PROTOCOL IV Last administered on 04/16/18at 06:59; Admin Dose 6.7 MLS/HR; Start 04/16/18 at 04:30 Miscellaneous Information (* Miscellaneous Pharmacy Order) HYPOGLYCEMIA TREATMENT HYPOGLYCEM PROTOCOL PRN XX .HYPOGLYCEMIA PROTOCOL; Start 04/16/18 at 04:30 Dextrose (D50w Syringe) 50 ml Q15M PRN IV .DECREASED GLUCOSE; Start 04/16/18 at 04:30 Dextrose (D50w Syringe) 25 ml Q15M PRN IV .DECREASED GLUCOSE; Start 04/16/18 at 04:30 Potassium Chloride/Sodium Chloride 1,000 ml @ 0 mls/hr Q0M IV Last administered on 04/16/18at 06:56; Admin Dose 100 MLS/HR; Start 04/16/18 at 05:00 Ondansetron HCl (Zofran Inj) 4 mg Q6H PRN IV NAUSEA AND/OR VOMITING; Start 04/16/18 at 06:30 Albuterol/ Ipratropium (Duoneb) 3 ml Q2H RESP THERAPY PRN NEB SHORTNESS OF BREATH; Start 04/16/18 at 06:30 Acetaminophen (Tylenol Liquid) 650 mg Q6H PRN PO PAIN LEVEL 1-3 OR FEVER; Start 04/16/18 at 06:30 Heparin Sodium (Porcine) (Heparin (5000 Units/1ml)) 5,000 unit Q12 SC ; Start 04/16/18 at 09:00 Coded Allergies: No Known Allergies (Verified Allergy, Mild, 04/16/18) Social History Smoking Status: Never smoker Exam/Review of Systems Vital Signs Vitals Vital Signs Date Temp Pulse Resp B/P (MAP) Pulse Ox O2 O2 Flow FiO2 Time Delivery Rate 04/16/18 84 18 115/71 99 Room Air 07:27 (86) 04/15/18 99.0 21:44 Exam Exam Past Medical History: see hpi Past Surgical History Past Surgical Hx: other (see hpi) Family History Significant Family History: no pertinent family hx Social History Alcohol Use: other Smoking Status: Unknown if ever smoked Drug Use: other Medications Exam Eyes: PERRL ENMT: mucosa pink and moist Respiratory: normal air movement Cardiovascular: nl pulses Gastrointestinal: soft Extremities: normal pulses MILA STERN MD Apr 16, 2018 08:28
[2018-04-16] MEDS: HEPARIN 5,000 UNIT/1 ML VIAL SC SCH ×2 (08:58→20:52)
--- NOTE | 2018-04-16 09:12 | PN ---
Date/Time of Note Date/Time of Note DATE: 04/16/18 TIME: 09:10 Assessment/Plan VTE Prophylaxis SCD applied (from Nsg): No SCD contraindicated: other Pharmacological prophylaxis: heparin Lines/Catheters IV Catheter Type (from Nrsg): Saline Lock Assessment/Plan Hospital Course S: Patient still on IV insulin, sugars and anion gap improved this morning. O: VS - see below PE: Gen: Lying in bed, no acute distress. Head: Atraumatic. Eyes: Normal Conjunctiva. ENT: Normal External Ears, Nose and Mouth. Neck: Full range of motion. No meningismus. Resp: Clear to auscultation bilaterally. Cardio: Regular tachycardic Abd: Soft, non distended, normal bowel sounds, non tender. Ext: No cyanosis, or edema. Neur: No focal deficit Assessment/Plan: 27-year-old with type 2 diabetes admitted for DKA. # DKA -A1c equals 13, sugars improving now, anion gap is normal. -Wean off insulin drip, continue IV fluids, start subcu insulin and diet -Continue electrolyte replacement #DVT prophylaxis: Heparin subcu Critical care time spent in patient care today equals 45 minutes. Result Diagram: 04/16/18 0410 04/16/18 0823 Results 24hrs Laboratory Tests Test 04/16/18 01:50 04/16/18 02:06 04/16/18 02:35 04/16/18 03:39 Urine Color STRAW Urine Clarity CLEAR Urine pH 5.0 Urine Specific 1.032 H [place] Urine Ketones 2+ H Urine Nitrite NEGATIVE Urine Bilirubin NEGATIVE Urine NEGATIVE Urobilinogen Urine Leukocyte NEGATIVE Esterase Urine Hemoglobin NEGATIVE Urine Glucose 3+ H Urine Total NEGATIVE Protein POC Beta HCG, NEGATIVE Qualitative Sodium Level 138 Potassium Level 3.9 Chloride Level 102 Carbon Dioxide 18 L Level Anion Gap 18 H Blood Urea 9 Nitrogen Creatinine 0.37 L Est Glomerular > 60 Filtrat Rate mL/min Glucose Level 337 H Calcium Level 9.9 Total Bilirubin 0.4 Direct Bilirubin 0.00 Indirect 0.4 Bilirubin Aspartate Amino 12 L Transf (AST/SGOT ) Alanine 8 L Aminotransferase (ALT/SGPT) Alkaline 143 H Phosphatase Total Protein 8.4 H Albumin 4.5 Globulin 3.90 H Albumin/Globulin 1.15 Ratio Bedside Glucose 266 H Test 04/16/18 03:57 04/16/18 04:10 04/16/18 04:11 04/16/18 04:59 Blood Gas Blood venous Specimen Source Arterial Blood 04/16/2018 4:05:22 Date Drawn AM Arterial Blood VENOUS LINE Gas Puncture Site Yong Test N/A Venous Blood pH 7.315 L Venous Blood 31.9 L pCO2 (Temp Corrected) Venous Blood pO2 43.3 H (Temp Corrected) Venous Blood 15.9 L HCO3 Venous Blood 76.9 H Oxygen Saturation Venous Blood -9.0 L Base Excess Venous Blood 14.4 Total Hemoglobin Venous Blood 76.5 Oxyhemoglobin Venous Blood 0.3 Methemoglobin Carboxyhemoglobi 0.2 n Blood Gas 37.0 Temperature Blood Gas Actual 18 Respiration Rate Blood Gas ROOM AIR Modality FiO2 21.0 Blood Gas D [facility] Notified Whom Blood Gas 04/16/2018 4:12:35 Notified Time AM White Blood 11.2 #H Count Red Blood Count 4.96 Hemoglobin 13.0 Hematocrit 39.5 Mean Corpuscular 79.6 L Volume Mean Corpuscular 26.2 L Hemoglobin Mean Corpuscular 32.9 Hemoglobin Luci nt Red Cell 12.2 Distribution Width Platelet Count 298 Mean Platelet 9.6 Volume Immature 0.400 Granulocytes % Neutrophils % 72.6 Lymphocytes % 15.4 Monocytes % 10.9 Eosinophils % 0.4 Basophils % 0.3 Nucleated Red 0.0 Blood Cells % Immature 0.050 H Granulocytes # Neutrophils # 8.2 H Lymphocytes # 1.7 Monocytes # 1.2 H Eosinophils # 0.1 Basophils # 0.0 Nucleated Red 0.0 Blood Cells # Hemoglobin A1c 12.5 H POC Venous 1.1 Lactate Bedside Glucose 296 H Test 04/16/18 05:41 04/16/18 05:45 04/16/18 06:23 04/16/18 06:49 Bedside Glucose 244 H 215 Sodium Level 137 Potassium Level 4.0 Chloride Level 105 Carbon Dioxide 17 L Level Anion Gap 15 H Blood Urea 7 Nitrogen Creatinine 0.32 L Est Glomerular > 60 Filtrat Rate mL/min Glucose Level 251 H Calcium Level 8.6 Phosphorus Level 3.3 Magnesium Level 1.6 L Blood Gas Blood venous Specimen Source Arterial Blood 04/16/2018 6:02:00 Date Drawn AM Arterial Blood VENOUS LINE Gas Puncture Site Yong Test N/A Venous Blood pH 7.323 L Venous Blood 32.7 L pCO2 (Temp Corrected) Venous Blood pO2 58.7 H (Temp Corrected) Venous Blood 16.6 L HCO3 Venous Blood 88.3 H Oxygen Saturation Venous Blood -8.3 L Base Excess Venous Blood 13.5 Total Hemoglobin Venous Blood 87.8 Oxyhemoglobin Venous Blood 0.3 Methemoglobin Carboxyhemoglobi 0.3 n Blood Gas 37.0 Temperature Blood Gas Actual 18 Respiration Rate Blood Gas ROOM AIR Modality FiO2 21.0 Blood Gas D [facility] Notified Whom Blood Gas 04/16/2018 6:07:00 Notified Time AM Test 04/16/18 07:53 04/16/18 08:23 04/16/18 09:01 Bedside Glucose 249 H 244 H Sodium Level 137 Potassium Level 3.5 Chloride Level 108 Carbon Dioxide 18 L Level Anion Gap 11 Blood Urea 6 L Nitrogen Creatinine 0.24 L Est Glomerular > 60 Filtrat Rate mL/min Glucose Level 261 H Calcium Level 8.5 Phosphorus Level 2.5 Magnesium Level 1.7 Exam/Review of Systems Exam Vitals Vital Signs Date Temp Pulse Resp B/P (MAP) Pulse Ox O2 O2 Flow FiO2 Time Delivery Rate 04/16/18 84 18 115/71 99 Room Air 07:27 (86) 04/15/18 99.0 21:44 Results Results 24hrs Laboratory Tests Test 04/16/18 01:50 04/16/18 02:06 04/16/18 02:35 04/16/18 03:39 Urine Color STRAW Urine Clarity CLEAR Urine pH 5.0 Urine Specific 1.032 H [place] Urine Ketones 2+ H Urine Nitrite NEGATIVE Urine Bilirubin NEGATIVE Urine NEGATIVE Urobilinogen Urine Leukocyte NEGATIVE Esterase Urine Hemoglobin NEGATIVE Urine Glucose 3+ H Urine Total NEGATIVE Protein POC Beta HCG, NEGATIVE Qualitative Sodium Level 138 Potassium Level 3.9 Chloride Level 102 Carbon Dioxide 18 L Level Anion Gap 18 H Blood Urea 9 Nitrogen Creatinine 0.37 L Est Glomerular > 60 Filtrat Rate mL/min Glucose Level 337 H Calcium Level 9.9 Total Bilirubin 0.4 Direct Bilirubin 0.00 Indirect 0.4 Bilirubin Aspartate Amino 12 L Transf (AST/SGOT ) Alanine 8 L Aminotransferase (ALT/SGPT) Alkaline 143 H Phosphatase Total Protein 8.4 H Albumin 4.5 Globulin 3.90 H Albumin/Globulin 1.15 Ratio Bedside Glucose 266 H Test 04/16/18 03:57 04/16/18 04:10 04/16/18 04:11 04/16/18 04:59 Blood Gas Blood venous Specimen Source Arterial Blood 04/16/2018 4:05:22 Date Drawn AM Arterial Blood VENOUS LINE Gas Puncture Site Yong Test N/A Venous Blood pH 7.315 L Venous Blood 31.9 L pCO2 (Temp Corrected) Venous Blood pO2 43.3 H (Temp Corrected) Venous Blood 15.9 L HCO3 Venous Blood 76.9 H Oxygen Saturation Venous Blood -9.0 L Base Excess Venous Blood 14.4 Total Hemoglobin Venous Blood 76.5 Oxyhemoglobin Venous Blood 0.3 Methemoglobin Carboxyhemoglobi 0.2 n Blood Gas 37.0 Temperature Blood Gas Actual 18 Respiration Rate Blood Gas ROOM AIR Modality FiO2 21.0 Blood Gas D [facility] Notified Whom Blood Gas 04/16/2018 4:12:35 Notified Time AM White Blood 11.2 #H Count Red Blood Count 4.96 Hemoglobin 13.0 Hematocrit 39.5 Mean Corpuscular 79.6 L Volume Mean Corpuscular 26.2 L Hemoglobin Mean Corpuscular 32.9 Hemoglobin Luci nt Red Cell 12.2 Distribution Width Platelet Count 298 Mean Platelet 9.6 Volume Immature 0.400 Granulocytes % Neutrophils % 72.6 Lymphocytes % 15.4 Monocytes % 10.9 Eosinophils % 0.4 Basophils % 0.3 Nucleated Red 0.0 Blood Cells % Immature 0.050 H Granulocytes # Neutrophils # 8.2 H Lymphocytes # 1.7 Monocytes # 1.2 H Eosinophils # 0.1 Basophils # 0.0 Nucleated Red 0.0 Blood Cells # Hemoglobin A1c 12.5 H POC Venous 1.1 Lactate Bedside Glucose 296 H Test 04/16/18 05:41 04/16/18 05:45 04/16/18 06:23 04/16/18 06:49 Bedside Glucose 244 H 215 Sodium Level 137 Potassium Level 4.0 Chloride Level 105 Carbon Dioxide 17 L Level Anion Gap 15 H Blood Urea 7 Nitrogen Creatinine 0.32 L Est Glomerular > 60 Filtrat Rate mL/min Glucose Level 251 H Calcium Level 8.6 Phosphorus Level 3.3 Magnesium Level 1.6 L Blood Gas Blood venous Specimen Source Arterial Blood 04/16/2018 6:02:00 Date Drawn AM Arterial Blood VENOUS LINE Gas Puncture Site Yong Test N/A Venous Blood pH 7.323 L Venous Blood 32.7 L pCO2 (Temp Corrected) Venous Blood pO2 58.7 H (Temp Corrected) Venous Blood 16.6 L HCO3 Venous Blood 88.3 H Oxygen Saturation Venous Blood -8.3 L Base Excess Venous Blood 13.5 Total Hemoglobin Venous Blood 87.8 Oxyhemoglobin Venous Blood 0.3 Methemoglobin Carboxyhemoglobi 0.3 n Blood Gas 37.0 Temperature Blood Gas Actual 18 Respiration Rate Blood Gas ROOM AIR Modality FiO2 21.0 Blood Gas D [facility] Notified Whom Blood Gas 04/16/2018 6:07:00 Notified Time AM Test 04/16/18 07:53 04/16/18 08:23 04/16/18 09:01 Bedside Glucose 249 H 244 H Sodium Level 137 Potassium Level 3.5 Chloride Level 108 Carbon Dioxide 18 L Level Anion Gap 11 Blood Urea 6 L Nitrogen Creatinine 0.24 L Est Glomerular > 60 Filtrat Rate mL/min Glucose Level 261 H Calcium Level 8.5 Phosphorus Level 2.5 Magnesium Level 1.7 Medications Medication Current Medications Potassium Chloride/Sodium Chloride 1,000 ml @ 0 mls/hr Q0M IV ; Start 04/16/18 at 04:23 Potassium Chloride/Dextrose/ Sod Cl 1,000 ml @ 0 mls/hr Q0M IV ; Start 04/16/18 at 04:23 Potassium Chloride/Dextrose/ Sod Cl 1,000 ml @ 0 mls/hr Q0M IV Last administered on 04/16/18at 06:56; Admin Dose 150 MLS/HR; Start 04/16/18 at 04:23 Sodium Chloride 1,000 ml @ 0 mls/hr Q0M IV ; Start 04/16/18 at 04:23 Dextrose/Sodium Chloride 1,000 ml @ 0 mls/hr Q0M IV ; Start 04/16/18 at 04:23 Insulin Human Regular 100 unit/ Sodium Chloride 100 ml @ 6.7 mls/hr ER DKA PROTOCOL IV Last administered on 04/16/18at 06:59; Admin Dose 6.7 MLS/HR; Start 04/16/18 at 04:30 Miscellaneous Information (* Miscellaneous Pharmacy Order) HYPOGLYCEMIA TREATMENT HYPOGLYCEM PROTOCOL PRN XX .HYPOGLYCEMIA PROTOCOL; Start 04/16/18 at 04:30 Dextrose (D50w Syringe) 50 ml Q15M PRN IV .DECREASED GLUCOSE; Start 04/16/18 at 04:30 Dextrose (D50w Syringe) 25 ml Q15M PRN IV .DECREASED GLUCOSE; Start 04/16/18 at 04:30 Potassium Chloride/Sodium Chloride 1,000 ml @ 0 mls/hr Q0M IV Last administered on 04/16/18at 06:56; Admin Dose 100 MLS/HR; Start 04/16/18 at 05:00 Ondansetron HCl (Zofran Inj) 4 mg Q6H PRN IV NAUSEA AND/OR VOMITING; Start 04/16/18 at 06:30 Albuterol/ Ipratropium (Duoneb) 3 ml Q2H RESP THERAPY PRN NEB SHORTNESS OF BREATH; Start 04/16/18 at 06:30 Acetaminophen (Tylenol Liquid) 650 mg Q6H PRN PO PAIN LEVEL 1-3 OR FEVER; Start 04/16/18 at 06:30 Heparin Sodium (Porcine) (Heparin (5000 Units/1ml)) 5,000 unit Q12 SC Last administered on 04/16/18at 08:58; Admin Dose 5,000 UNIT; Start 04/16/18 at 09:00 GIGI LOPEZ Apr 16, 2018 09:12
[2018-04-16] MEDS ORDERED: GLUCAGON 1 MG INJ IM PRN (09:30)
[2018-04-16] MEDS ORDERED: GLUCOSE GEL 15 GRAM TUBE BUCCAL PRN (09:30)
[2018-04-16] MEDS ORDERED: GLUCOSE GEL 15 GRAM TUBE PO PRN ×2 (09:30)
[2018-04-16] MEDS: INSULIN GLARGINE [LANTus] (100 UNITS/ML) SYG SC SCH (11:12)
[2018-04-16] MEDS ORDERED: INSULIN ASPART [NOVOLOG] 3 ML PEN SC SCH (11:30)
[2018-04-16] MEDS: INSULIN ASPART [NOVOLOG] 3 ML PEN SC SCH ×5 (13:33→20:53)
[2018-04-16] MEDS: ACETAMINOPHEN 650MG/20.3ML CUP PO PRN (19:38)
[2018-04-17] MEDS: ACCU-CHEK XX SCH (02:00)
[2018-04-17 02:33] VITALS: BP 114/71; PULSE 80; RESP 18
[2018-04-17 07:42] VITALS: BP 114/75; PULSE 82; RESP 15
[2018-04-17] MEDS ORDERED: INSULIN GLARGINE [LANTus] (100 UNITS/ML) SYG SC SCH (08:00)
[2018-04-17] MEDS: INSULIN ASPART [NOVOLOG] 3 ML PEN SC SCH ×7 (08:05→21:26)
[2018-04-17] MEDS: INSULIN GLARGINE [LANTus] (100 UNITS/ML) SYG SC SCH (08:09)
[2018-04-17] MEDS: HEPARIN 5,000 UNIT/1 ML VIAL SC SCH ×2 (08:14→21:25)
--- NOTE | 2018-04-17 14:17 | PN ---
Date/Time of Note Date/Time of Note DATE: 04/17/18 TIME: 14:16 Assessment/Plan VTE Prophylaxis Risk score (from Ns)>0 risk: 1 SCD applied (from Ns): No SCD contraindicated: other Pharmacological prophylaxis: heparin Lines/Catheters IV C[facility] Type [facility]from [facility] Saline Lock Urinary Cath still in place: No Assessment/Plan Hospital Course S: Patient out of ICU now since yesterday, tolerating diet. O: VS - see below PE: Gen: Lying in bed, no acute distress. Head: Atraumatic. Eyes: Normal Conjunctiva. ENT: Normal External Ears, Nose and Mouth. Neck: Full range of motion. No meningismus. Resp: Clear to auscultation bilaterally. Cardio: S1, S2 heard Abd: Soft, non distended, normal bowel sounds, non tender. Ext: No cyanosis, or edema. Neur: No focal deficit Assessment/Plan: 27-year-old with type 2 diabetes admitted for DKA. # DKA -A1c equals 13, sugars in the low to mid 200 range. -We will increase dose of aspart with meals as well as increase the Lantus dose, continue sliding scale insulin -Continue electrolyte replacement as needed -Consider breastfeeding educator consult #DVT prophylaxis: Heparin subcu Result Diagram: 04/16/18 0410 04/17/18 0025 Results 24hrs Laboratory Tests Test 04/16/18 14:24 04/16/18 15:04 04/16/18 17:25 04/16/18 20:46 Bedside Glucose 192 181 179 294 H Test 04/17/18 00:25 04/17/18 02:30 04/17/18 08:01 04/17/18 12:52 Sodium Level 136 Potassium Level 3.5 Chloride Level 101 Carbon Dioxide Level 24 Anion Gap 11 Blood Urea Nitrogen 7 Creatinine 0.35 L Est Glomerular Filtrat > 60 Rate mL/min Glucose Level 266 #H Calcium Level 9.0 Phosphorus Level 3.8 Magnesium Level 1.8 Bedside Glucose 259 H 271 H 226 H Exam/Review of Systems Exam Vitals Vital Signs Date Temp Pulse Resp B/P (MAP) Pulse Ox O2 O2 Flow FiO2 Time Delivery Rate 04/17/18 98.4 82 15 114/75 100 07:42 (88) 04/16/18 Room Air 18:00 Intake and Output 04/16/18 04/16/1819 1515:00 23:00 07:00 IntakeIntake Total 2253.6 ml 450 ml BalanceBalance 2253.6 ml 450 ml Results Results 24hrs Laboratory Tests Test 04/16/18 14:24 04/16/18 15:04 04/16/18 17:25 04/16/18 20:46 Bedside Glucose 192 181 179 294 H Test 04/17/18 00:25 04/17/18 02:30 04/17/18 08:01 04/17/18 12:52 Sodium Level 136 Potassium Level 3.5 Chloride Level 101 Carbon Dioxide Level 24 Anion Gap 11 Blood Urea Nitrogen 7 Creatinine 0.35 L Est Glomerular Filtrat > 60 Rate mL/min Glucose Level 266 #H Calcium Level 9.0 Phosphorus Level 3.8 Magnesium Level 1.8 Bedside Glucose 259 H 271 H 226 H Medications Medication Current Medications Miscellaneous Information (* Miscellaneous Pharmacy Order) HYPOGLYCEMIA TREATMENT HYPOGLYCEM PROTOCOL PRN XX .HYPOGLYCEMIA PROTOCOL; Start 04/16/18 at 04:30 Ondansetron HCl (Zofran Inj) 4 mg Q6H PRN IV NAUSEA AND/OR VOMITING; Start 04/16/18 at 06:30 Albuterol/ Ipratropium (Duoneb) 3 ml Q2H RESP THERAPY PRN NEB SHORTNESS OF BREATH; Start 04/16/18 at 06:30 Acetaminophen (Tylenol Liquid) 650 mg Q6H PRN PO PAIN LEVEL 1-3 OR FEVER Last administered on 04/16/18at 19:38; Admin Dose 650 MG; Start 04/16/18 at 06:30 Heparin Sodium (Porcine) (Heparin (5000 Units/1ml)) 5,000 unit Q12 SC Last administered on 04/17/18at 08:14; Admin Dose 5,000 UNIT; Start 04/16/18 at 09:00 Diagnostic Test (Pha) (Accu-Chek) 1 ea 02 XX ; Start 04/17/18 at 02:00 Insulin Aspart (Novolog Insulin Pen) NOVOLOG *MILD* ALGORITHM WITH MEALS BEDTIME SC Last administered on 04/17/18at 12:56; Admin Dose 3 UNIT; Start 04/16/18 at 11:30 Miscellaneous Information 1 ea NOTE XX ; Start 04/16/18 at 09:30 Glucose (Glutose) 15 gm Q15M PRN PO DECREASED GLUCOSE; Start 04/16/18 at 09:30 Glucose (Glutose) 22.5 gm Q15M PRN PO DECREASED GLUCOSE; Start 04/16/18 at 09:30 Dextrose (D50w Syringe) 25 ml Q15M PRN IV DECREASED GLUCOSE; Start 04/16/18 at 09:30 Dextrose (D50w Syringe) 50 ml Q15M PRN IV DECREASED GLUCOSE; Start 04/16/18 at 09:30 Glucagon (Glucagen) 1 mg Q15M PRN IM DECREASED GLUCOSE; Start 04/16/18 at 09:30 Glucose (Glutose) 15 gm Q15M PRN BUCCAL DECREASED GLUCOSE; Start 04/16/18 at 09:30 Insulin Aspart (Novolog Insulin Pen) 5 unit WITH MEALS SC Last administered on 04/17/18at 12:55; Admin Dose 5 UNIT; Start 04/16/18 at 11:30 Insulin Glargine (Lantus) 15 units DAILY@0800 SC Last administered on 04/17/18at 08:09; Admin Dose 15 UNITS; Start 04/16/18 at 11:00 Influenza Virus Vaccine Quadrival (Fluzone) 0.5 ml ONCE ONCE IM* ; Start 04/19/18 at 10:00; Stop 04/19/18 at 10:01 GIGI LOPEZ Apr 17, 2018 14:17
[2018-04-17 15:27] VITALS: BP 116/75; PULSE 52; RESP 18
[2018-04-17 20:07] VITALS: BP 113/81; PULSE 91; RESP 18
[2018-04-18 02:00] VITALS: BP 111/70; PULSE 79; RESP 18
[2018-04-18] MEDS: ACCU-CHEK XX SCH (02:00)
[2018-04-18] MEDS: ONDANSETRON 4 MG INJ IV PRN ×2 (05:43→12:58)
[2018-04-18 07:28] VITALS: BP 143/83; PULSE 86; RESP 20
[2018-04-18] MEDS: PANTOPRAZOLE 40 MG INJ IV SCH (07:55)
[2018-04-18] MEDS: INSULIN ASPART [NOVOLOG] 3 ML PEN SC SCH ×8 (08:00→21:04)
[2018-04-18] MEDS: ACETAMINOPHEN 650MG/20.3ML CUP PO PRN ×2 (08:42→17:40)
[2018-04-18] MEDS: HEPARIN 5,000 UNIT/1 ML VIAL SC SCH ×2 (08:49→21:05)
[2018-04-18] MEDS: INSULIN GLARGINE [LANTus] (100 UNITS/ML) SYG SC SCH (08:49)
--- NOTE | 2018-04-18 13:45 | PN ---
Date/Time of Note Date/Time of Note DATE: 04/18/18 TIME: 13:40 Assessment/Plan VTE Prophylaxis Risk score (from Nsg)>0 risk: 1 SCD applied (from Nsg): No SCD contraindicated: other (no) Pharmacological prophylaxis: heparin Lines/Catheters IV Catheter Type (from Nrs): Saline Lock Urinary Cath still in place: No Assessment/Plan Assessment/Plan 27-year-old with insulin-dependent diabetes admitted for DKA #Insulin-dependent diabetes - Very unusual case. Diagnosed in early 20s, cannot tolerate metformin 500 BID due to bloating and diarrhea; so insulin dependent. - Apparently cousin recently diagnosed with diabetes age 9. - She has seen Dr. 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 - Will send anti-insulin antibodies - Continue to adjust glargine and aspart in house for hyperglycemia. #L flank pain - Colicky pain c/w nephrolithiasis, although UA clean. - Will check abdominal US and consider CT abdomen. #DVT prophylaxis: Heparin subcu Result Diagram: 04/18/18 0551 04/18/18 0551 Subjective 24 Hr Interval Summary Free Text/Dictation No acute overnight events. Patient had an episode of cramping LUQ and L flank pain associated with nausea this morning; lasted several hours, then resolved spontaneously. Says she has had this intermittent colicky pain since admission. Exam/Review of Systems Exam Vitals Vital Signs Date Temp Pulse Resp B/P (MAP) Pulse Ox O2 O2 Flow FiO2 Time Delivery Rate 04/18/18 98.5 86 20 143/83 99 Room Air 07:28 (103) Intake and Output 04/17/18 04/17/18 04/18/18 1515:00 23:00 07:00 IntakeIntake Total 960 ml 1200 ml BalanceBalance 960 ml 1200 ml Exam Gen: Lying in bed, no acute distress. Head: Atraumatic. Eyes: Normal Conjunctiva. ENT: Normal External Ears, Nose and Mouth. Neck: Full range of motion. No meningismus. Resp: Clear to auscultation bilaterally. Cardio: S1, S2 heard Abd: Soft, non distended, normal bowel sounds, non tender. Ext: No cyanosis, or edema. Neur: No focal deficit Results Results 24hrs Laboratory Tests Test 04/17/18 17:38 04/17/18 21:25 04/18/18 03:15 04/18/18 05:51 Bedside Glucose 251 H 259 H 286 H White Blood Count 7.7 # Red Blood Count 5.16 Hemoglobin 13.8 Hematocrit 41.4 Mean Corpuscular Volume 80.2 L Mean Corpuscular 26.7 L Hemoglobin Mean Corpuscular 33.3 Hemoglobin Concent Red Cell Distribution 11.9 Width Platelet Count 340 Mean Platelet Volume 9.4 Immature Granulocytes % 0.500 H Neutrophils % 61.3 Lymphocytes % 23.3 Monocytes % 13.3 H Eosinophils % 1.2 Basophils % 0.4 Nucleated Red Blood 0.0 Cells % Immature Granulocytes # 0.040 H Neutrophils # 4.7 Lymphocytes # 1.8 Monocytes # 1.0 H Eosinophils # 0.1 Basophils # 0.0 Nucleated Red Blood 0.0 Cells # Sodium Level 138 Potassium Level 3.7 Chloride Level 101 Carbon Dioxide Level 23 Anion Gap 14 H Blood Urea Nitrogen 13 Creatinine 0.36 L Est Glomerular Filtrat > 60 Rate mL/min Glucose Level 322 H Calcium Level 9.3 Phosphorus Level 4.7 Magnesium Level 1.6 L Test 04/18/18 08:44 04/18/18 10:41 04/18/18 12:53 Bedside Glucose 285 H 235 H 276 H Medications Medication Current Medications Miscellaneous Information (* Miscellaneous Pharmacy Order) HYPOGLYCEMIA TREATMENT HYPOGLYCEM PROTOCOL PRN XX .HYPOGLYCEMIA PROTOCOL; Start 04/16/18 at 04:30 Ondansetron HCl (Zofran Inj) 4 mg Q6H PRN IV NAUSEA AND/OR VOMITING Last administered on 04/18/18at 12:58; Admin Dose 4 MG; Start 04/16/18 at 06:30 Albuterol/ Ipratropium (Duoneb) 3 ml Q2H RESP THERAPY PRN NEB SHORTNESS OF BREATH; Start 04/16/18 at 06:30 Acetaminophen (Tylenol Liquid) 650 mg Q6H PRN PO PAIN LEVEL 1-3 OR FEVER Last administered on 04/18/18at 08:42; Admin Dose 650 MG; Start 04/16/18 at 06:30 Heparin Sodium (Porcine) (Heparin (5000 Units/1ml)) 5,000 unit Q12 SC Last administered on 04/18/18at 08:49; Admin Dose 5,000 UNIT; Start 04/16/18 at 09:00 Diagnostic Test (Pha) (Accu-Chek) 1 ea 02 XX ; Start 04/17/18 at 02:00 Insulin Aspart (Novolog Insulin Pen) NOVOLOG *MILD* ALGORITHM WITH MEALS BEDTIME SC Last administered on 04/18/18at 12:55; Admin Dose 4 UNIT; Start 04/16/18 at 11:30 Miscellaneous Information 1 ea NOTE XX ; Start 04/16/18 at 09:30 Glucose (Glutose) 15 gm Q15M PRN PO DECREASED GLUCOSE; Start 04/16/18 at 09:30 Glucose (Glutose) 22.5 gm Q15M PRN PO DECREASED GLUCOSE; Start 04/16/18 at 09:30 Dextrose (D50w Syringe) 25 ml Q15M PRN IV DECREASED GLUCOSE; Start 04/16/18 at 09:30 Dextrose (D50w Syringe) 50 ml Q15M PRN IV DECREASED GLUCOSE; Start 04/16/18 at 09:30 Glucagon (Glucagen) 1 mg Q15M PRN IM DECREASED GLUCOSE; Start 04/16/18 at 09:30 Glucose (Glutose) 15 gm Q15M PRN BUCCAL DECREASED GLUCOSE; Start 04/16/18 at 09:30 Influenza Virus Vaccine Quadrival (Fluzone) 0.5 ml ONCE ONCE IM* ; Start 04/19/18 at 10:00; Stop 04/19/18 at 10:01 Insulin Aspart (Novolog Insulin Pen) 9 unit WITH MEALS SC Last administered on 04/18/18at 10:40; Admin Dose 9 UNIT; Start 04/17/18 at 18:00 Insulin Glargine (Lantus) 24 units DAILY@0800 SC Last administered on 04/18/18at 08:49; Admin Dose 24 UNITS; Start 04/18/18 at 08:00 Pantoprazole (Protonix Iv) 40 mg DAILY@06 IV Last administered on 04/18/18at 07:55; Admin Dose 40 MG; Start 04/18/18 at 07:00 DERRICK NGUYEN MD Apr 18, 2018 13:45
[2018-04-18 14:09] VITALS: BP 116/75; PULSE 71; RESP 16
[2018-04-18 19:23] VITALS: BP 111/71; PULSE 82; RESP 18
[2018-04-19 01:24] VITALS: BP 118/72; PULSE 66; RESP 18
[2018-04-19] MEDS: ACCU-CHEK XX SCH (02:10)
[2018-04-19] MEDS: PANTOPRAZOLE 40 MG INJ IV SCH (05:52)
[2018-04-19 07:45] VITALS: BP 104/72; PULSE 78; RESP 16
[2018-04-19] MEDS: INSULIN ASPART [NOVOLOG] 3 ML PEN SC SCH ×4 (08:24→17:36)
[2018-04-19] MEDS: INSULIN GLARGINE [LANTus] (100 UNITS/ML) SYG SC SCH (08:25)
[2018-04-19] MEDS: HEPARIN 5,000 UNIT/1 ML VIAL SC SCH (08:26)
[2018-04-19] MEDS ORDERED: REPAGLINIDE 1 MG TAB PO SCH (11:30)
[2018-04-19] MEDS: REPAGLINIDE 2 MG TAB PO SCH ×2 (12:44→17:36)
[2018-04-19 14:46] VITALS: BP 118/81; PULSE 74; RESP 16
[2018-04-19] MEDS ORDERED: REPA2TAB23 PO (15:41)
[2018-04-19] MEDS ORDERED: Insulin Glargine SC (15:41)
--- NOTE | 2018-04-19 15:45 | PDOCDIS ---
Discharge Instructions DIAGNOSIS Discharge Diagnosis Diabetic ketoacidosis CONDITION [id number] Patient Condition: [id number] Good HOME CARE INSTRUCTIONS: [id number] Special Diet: [id number] consistent carbohydrate FOLLOW UP/APPOINTMENTS Follow-up Plan 1. Take all medications as prescribed. 2. See your primary care doctor in 1-2 weeks. 3. Return to the emergency room if your blood sugar is consistently <70 or >300. DERRICK NGUYEN MD Apr 19, 2018 15:45
--- NOTE | 2018-04-19 17:35 | DS ---
Date/Time of Note Date/Time of Note DATE: 04/19/18 TIME: 17:33 Discharge Summary Admission/Discharge Info Admit Date/Time Apr 16, 2018 at 05:44 Discharge Date/Time Apr 19, 2018 Discharge Diagnosis Diabetic ketoacidosis Patient Condition: Good Consults None Procedures None Hx of Present Illness This is a 27-year-old female with a history of type 2 diabetes who presents to the ER complaining of nausea, cough and generalized weakness. Denied fever/chills, diarrhea or constipation. In the ER she is found to be in mild DKA. She has been started on DKA protocol. Hospital Course Admitted to ICU briefly on DKA protocol, but quickly transitioned to subQ insulin. She reported mild colicky L flank pain and LUQ pain intermittently throughout the hospitalization. Got abdominal US negative for focal hydronephrosis, stones, or anything else unusual She will be discharged on lantus 30 u subQ daily and prandin 2mg TIDWM. Was given diabetes supplies upon discharge. Home Meds Active Scripts [Insulin Glargine] 100 UNITS/ML SOLN No Conflict Check, 30 UNITS SC DAILY@0800 Prov:DERRICK NGUYEN MD 04/19/18 Repaglinide* (Prandin*) 2 Mg Tablet, 2 MG PO AC MEALS, #30 TAB Prov:DERRICK NGUYEN MD 04/19/18 Discontinued Reported Medications Metformin Hcl* (Metformin Hcl*) 500 Mg Tablet, 500 MG PO BID, TAB 02/21/14 Discontinued Scripts Metformin* (Glucophage*) 500 Mg Tab, 500 MG PO BID, #60 TAB Prov:KELSY KERNS PA-C 09/14/16 Bacitracin* (Bacitracin Oint (UD)*) 1 Applic Oint, 1 APPLIC TOP ONCE for 5 Days, PKT APPLY TO Prov:LIV BISWAS PA-C 05/14/16 Naproxen* (Naprosyn*) 500 Mg Tablet, 500 MG PO BID for 7 Days, TAB Prov:LIV BISWAS PA-C 05/14/16 Metformin Hcl* (Metformin Hcl*) 500 Mg Tablet, 500 MG PO WITH BREAKFAST DINNE, #60 TAB Prov:LIV BISWAS PA-C 05/14/16 Trimethoprim-Sulfamethoxazole* (Bactrim*) 400-80 Mg Tab, 1 TAB PO BID, #20 TAB Prov:LIV BISWAS PA-C 05/14/16 Cephalexin* (Cephalexin*) 500 Mg Capsule, 500 MG PO Q8, #21 CAP Prov:LIV BISWAS PA-C 05/14/16 Ibuprofen* (Motrin*) 600 Mg Tab, 600 MG PO Q6, #14 TAB Prov:SHARI ARIAS MD 10/30/14 Phenazopyridine Hcl* (Pyridium*) 200 Mg Tab, 200 MG PO TID PRN for DYSURIA, #6 TAB Prov:SHARI ARIAS MD 10/30/14 Cephalexin* (Keflex*) 500 Mg Capsule, 500 MG PO QID for 7 Days, CAP Prov:SHARI ARIAS MD 10/30/14 Follow-up Plan 1. Take all medications as prescribed. 2. See your primary care doctor in 1-2 weeks. 3. Return to the emergency room if your blood sugar is consistently <70 or >300. Primary Care Provider Not On Staff Doctor Time spent on discharge: > 30 minutes Pending Labs Laboratory Tests Test 04/18/18 17:35 04/18/18 21:01 04/19/18 01:47 04/19/18 08:13 Bedside 226 196 199 250 Glucose mg/dL (70-220) mg/dL (70-220) mg/dL (70-220) mg/dL (70-220) Test 04/19/18 12:39 04/19/18 15:00 Bedside 148 201 Glucose mg/dL (70-220) mg/dL (70-220) DERRICK NGUYEN MD Apr 19, 2018 17:35
== END 2018-04-19 19:05 | disposition home or self-care (01) | DRG 639 ==
LOC: FTE 21:04 → ICU 04-16 05:44 → 2NE 04-16 18:21
PROVIDERS: ADMIT Internal Medicine; ATTEND Internal Medicine
DX: E11.10 Type 2 diabetes mellitus with ketoacidosis without coma (principal); Z91.14 Patient's other noncompliance with medication regimen; Z79.4 Long term (current) use of insulin
CPT/HCPCS: 36415; 71045; 76700; 80048; 80053; 81003; 81025; 82803; 82962; 83036; 83605; 83735; 84100; 85025; 86337; 87081; 87400; 90686; C9113; J1644; J1815; J2405; J7030; J7120

== ENCOUNTER 2018-05-23 13:22 | Inpatient (IN) | payer OTHER ==
[~2018-05-23] VITALS: Ht 154.9 cm; Wt 63.5 kg
[~2018-05-23 13:22] MED LIST changes: -BACITUD TOP; -BACTRIM PO; -CEPH-443 PO; -CEPH500C PO; -IBUP-1542 PO; +Insulin Glargine SC; -METF-849 PO; -METF500T24 PO; -NAPR-985 PO; -PHEN-538 PO; +REPA2TAB23 PO
--- NOTE | 2018-05-23 14:59 | ERD ---
ER Documentation Chief Complaint Chief Complaint NAUSEA, VOMITING, ONSET 2 DAYS HPI The patient is a 27-year-old female, presenting to the ER because of vomiting for the last 2-day, had similar symptoms previously. She has not been taking her medication insulin for the last 2 days. She was admitted recently for acute DKA. She denies fever, cough, neck pain, chest pain, dyspnea, hematemesis/hematochezia, complains of diffuse abdominal discomfort with vomiting, denies dysuria, diarrhea. She does not smoke nor drink Past medical history: Diabetes mellitus Past surgical history: ROS All systems reviewed and are negative except as per history of present illness. Medications Home Meds Reported Medications Insulin Lispro (Humalog) 100 Unit/1 Ml Cartridge, 10 UNIT SQ WITH MEALS, EA 05/23/18 Insulin Glargine,Hum.rec.anlog (Basaglar Kwikpen U-100) 100 Unit/1 Ml Insuln.pen, 30 UNIT SC QAM, EA 05/23/18 Discontinued Scripts [Insulin Glargine] 100 UNITS/ML SOLN No Conflict Check, 30 UNITS SC DAILY@0800 Prov:DERRICK NGUYEN MD 04/19/18 Repaglinide* (Prandin*) 2 Mg Tablet, 2 MG PO AC MEALS, #30 TAB Prov:DERRICK NGUYEN MD 04/19/18 Allergies Allergies: Coded Allergies: No Known Allergies (Verified Allergy, Mild, 05/23/18) PMhx/Soc History of Surgery: Yes ( x2) Anesthesia Reaction: No Hx Neurological Disorder: No Hx Respiratory Disorders: No Hx Cardiac Disorders: No Hx Psychiatric Problems: No Hx Miscellaneous Medical Probl: No Hx Alcohol Use: No Hx Substance Use: No Hx Tobacco Use: No Physical Exam Vitals Vital Signs Date Temp Pulse Resp B/P (MAP) Pulse Ox O2 O2 Flow FiO2 Time Delivery Rate 05/23/18 116 21 129/91 100 Room Air 18:44 (104) 05/23/18 102 20 130/87 100 Room Air 18:12 (101) 05/23/18 120 22 149/100 100 Room Air 17:00 (116) 05/23/18 109 21 133/86 100 Room Air 16:00 (102) 05/23/18 115 23 139/97 100 Room Air 14:55 (111) 05/23/18 97.7 117 20 162/93 100 13:28 (116) Physical Exam Const: No acute distress. Dehydrated Head: Atraumatic. Eyes: Normal Conjunctiva. ENT: Normal External Ears, Nose and Mouth. Neck: Full range of motion. No meningismus. Resp: Clear to auscultation bilaterally. tachypneic Cardio: Regular tachycardic. Abd: Soft, non distended, normal bowel sounds, non tender.vague diffuse abd discomfort Skin: No petechiae or rashes. Back: No midline or flank tenderness. Ext: No cyanosis, or edema. Neur: Awake and alert. No focal deficit Psych: Normal Mood and Affect. Result Diagram: 05/23/18 1518 05/23/18 1915 Results 24 hrs Laboratory Tests Test 05/23/18 13:32 05/23/18 15:08 05/23/18 15:18 05/23/18 16:02 Bedside Glucose 347 mg/dL 371 mg/dL Blood Gas Blood venous Specimen Source Arterial Blood 05/23/2018 3:15:18 Date Drawn PM Arterial Blood VENOUS LINE Gas Puncture Site Yong Test N/A Venous Blood pH 7.172 Venous Blood 25.8 mmHG pCO2 (Temp Corrected) Venous Blood pO2 32.3 mmHG (Temp Corrected) Venous Blood 9.2 mmol/L HCO3 Venous Blood 60.4 mmHG Oxygen Saturation Venous Blood -17.5 mmol/L Base Excess Venous Blood 16.3 g/dl Total Hemoglobin Venous Blood 60.0 % Oxyhemoglobin Venous Blood 0.2 % Methemoglobin Carboxyhemoglobi 0.4 % n Blood Gas 37.0 C Temperature Blood Gas ROOM AIR Modality FiO2 21.0 % Blood Gas DR. BETTENCOURT Critical Value Read Back Blood Gas RT Notified Whom Blood Gas 05/23/2018 3:23:05 Notified Time PM White Blood 16.3 10^3/ul Count Red Blood Count 5.87 10^6/ul Hemoglobin 15.6 g/dl Hematocrit 47.6 % Mean Corpuscular 81.1 fl Volume Mean Corpuscular 26.6 pg Hemoglobin Mean Corpuscular 32.8 g/dl Hemoglobin Luci nt Red Cell 12.2 % Distribution Width Platelet Count 455 10^3/UL Mean Platelet 10.0 fl Volume Immature 1.500 % Granulocytes % Neutrophils % 85.6 % Lymphocytes % 7.6 % Monocytes % 4.7 % Eosinophils % 0.0 % Basophils % 0.6 % Nucleated Red 0.0 /100WBC Blood Cells % Immature 0.240 10^3/ul Granulocytes # Neutrophils # 14.0 10^3/ul Lymphocytes # 1.2 10^3/ul Monocytes # 0.8 10^3/ul Eosinophils # 0.0 10^3/ul Basophils # 0.1 10^3/ul Nucleated Red 0.0 10^3/ul Blood Cells # Urine Color STRAW Urine Clarity SLIGHTLY CLOUDY Urine pH 5.0 Urine Specific 1.014 [place] Urine Ketones 2+ mg/dL Urine Nitrite NEGATIVE mg/dL Urine Bilirubin NEGATIVE mg/dL Urine NEGATIVE mg/dL Urobilinogen Urine Leukocyte NEGATIVE Clay/ul Esterase Urine 4 /HPF Microscopic RBC Urine 33 /HPF Microscopic WBC Urine Squamous FEW /HPF Epithelial Cells Urine Bacteria FEW /HPF Urine Hemoglobin 3+ mg/dL Urine Glucose 3+ mg/dL Urine Total 1+ mg/dl Protein Sodium Level 139 mmol/L Potassium Level 3.9 mmol/L Chloride Level 102 mmol/L Carbon Dioxide 8 mmol/L Level Anion Gap 29 Blood Urea 11 mg/dl Nitrogen Creatinine 0.55 mg/dl Est Glomerular > 60 mL/min Filtrat Rate mL/min Glucose Level 432 mg/dl Hemoglobin A1c 11.6 % Calcium Level 10.0 mg/dl Phosphorus Level 4.3 mg/dl Magnesium Level 2.0 mg/dl Test 05/23/18 17:04 05/23/18 17:20 05/23/18 17:26 05/23/18 17:51 Bedside Glucose 392 mg/dL 328 mg/dL Sodium Level 143 mmol/L Potassium Level 4.1 mmol/L Chloride Level 107 mmol/L Carbon Dioxide 10 mmol/L Level Anion Gap 26 Blood Urea 11 mg/dl Nitrogen Creatinine 0.44 mg/dl Est Glomerular > 60 mL/min Filtrat Rate mL/min Glucose Level 330 mg/dl Calcium Level 9.3 mg/dl Phosphorus Level 2.7 mg/dl Magnesium Level 1.9 mg/dl Blood Gas Blood venous Specimen Source Arterial Blood 05/23/2018 5:15:36 Date Drawn PM Arterial Blood VENOUS LINE Gas Puncture Site Yong Test N/A Venous Blood pH 7.154 Venous Blood 27.5 mmHG pCO2 (Temp Corrected) Venous Blood pO2 34.0 mmHG (Temp Corrected) Venous Blood 9.5 mmol/L HCO3 Venous Blood 63.3 mmHG Oxygen Saturation Venous Blood -17.8 mmol/L Base Excess Venous Blood 15.8 g/dl Total Hemoglobin Venous Blood 63.0 % Oxyhemoglobin Venous Blood 0.2 % Methemoglobin Carboxyhemoglobi 0.2 % n Blood Gas 37.0 C Temperature Blood Gas ROOM AIR Modality FiO2 21.0 % Blood Gas DR. BETTENCOURT Critical Value Read Back Blood Gas RT Notified Whom Blood Gas 05/23/2018 5:24:20 Notified Time PM Test 05/23/18 18:51 05/23/18 19:15 Bedside Glucose 235 mg/dL Sodium Level 144 mmol/L Potassium Level 3.9 mmol/L Chloride Level 111 mmol/L Carbon Dioxide 10 mmol/L Level Anion Gap 23 Blood Urea 11 mg/dl Nitrogen Creatinine 0.43 mg/dl Est Glomerular > 60 mL/min Filtrat Rate mL/min Glucose Level 279 mg/dl Calcium Level 9.0 mg/dl Phosphorus Level 2.1 mg/dl Magnesium Level 1.9 mg/dl Current Medications Medications Dose Sig/Rey Start Time Status Last (Trade) Ordered Route PRN Stop Time Admin Dose Reason Admin Sodium 640 ml @ ONCE ONCE 05/23/18 DC 05/23/18 Chloride 640 mls/hr IV 15:30 05/23/18 15:13 16:29 Ondansetron 4 mg STK-MED 05/23/18 DC HCl (Zofran ONCE .ROUTE 15:16 05/23/18 Inj) 15:17 Potassium 1,000 ml @ Q0M IV 05/23/18 Chloride/Sodi 0 mls/hr 15:26 um Chloride Potassium 1,000 ml @ Q0M IV 05/23/18 Chloride/Dext 0 mls/hr 15:26 min/ Sod Cl Potassium 1,000 ml @ Q0M IV 05/23/18 05/23/18 Chloride/Sodi 0 mls/hr 15:26 16:14 um Chloride Potassium 1,000 ml @ Q0M IV 05/23/18 05/23/18 Chloride/Dext 0 mls/hr 15:26 16:15 min/ Sod Cl Sodium 1,000 ml @ Q0M IV 05/23/18 Chloride 0 mls/hr 15:26 1,000 ml @ Q0M IV 05/23/18 Dextrose/Sodi 0 mls/hr 15:26 um Chloride Insulin 101 ml @ ER DKA 05/23/18 05/23/18 Human 6.41 mls/hr PROTOCOL IV 15:30 16:13 Regular 100 unit/ Sodium Chloride Lactated 640 ml @ ONCE ONCE 05/23/18 DC 05/23/18 Ringer's 640 mls/hr IV 15:30 05/23/18 15:48 16:29 HYPOGLYCEM 05/23/18 Miscellaneous HYPOGLYCEMIA PROTOCOL PRN 15:30 TREATMENT XX Information .HYPOGLYCEMIA (* PROTOCOL Miscellaneous Pharmacy Order) Dextrose 50 ml Q15M PRN 05/23/18 (D50w IV 15:30 Syringe) .DECREASED GLUCOSE Dextrose 25 ml Q15M PRN 05/23/18 (D50w IV 15:30 Syringe) .DECREASED GLUCOSE 10 mg ONCE ONCE 05/23/18 DC 05/23/18 Metoclopramid IV 17:00 05/23/18 18:23 e HCl 17:01 (Reglan) Ondansetron 4 mg ONCE STAT 05/23/18 DC 05/23/18 HCl (Zofran IV 16:45 05/23/18 16:48 Inj) 16:47 Morphine 2 mg ONCE STAT 05/23/18 DC 05/23/18 Sulfate IV 16:47 05/23/18 16:54 (morphine) 16:48 Ondansetron 4 mg STK-MED 05/23/18 DC HCl (Zofran ONCE .ROUTE 16:48 05/23/18 Inj) 16:49 IV Flush 3 ml PER 05/23/18 (NS 3 ml) PROTOCOL IV 19:30 Ondansetron 4 mg Q6H PRN 05/23/18 HCl (Zofran IV 19:30 Inj) NAUSEA/VOMITI NG 650 mg Q6H PRN 05/23/18 Acetaminophen PO .PAIN 1-3 19:30 (Tylenol OR TEMP Tab) 1 tab Q6H PRN 05/23/18 Acetaminophen PO .MOD PAIN 19:30 / 4-6 Hydrocodone Bitart ([place] (5/325)) Morphine 2 mg Q4H PRN 05/23/18 Sulfate IV .SEVERE 19:30 (morphine) PAIN 7-10 Zolpidem 5 mg QHS PRN 05/23/18 Tartrate PO .INSOMNIA 19:30 (Ambien) Enoxaparin 40 mg DAILY SC 05/24/18 Sodium 09:00 (Lovenox) Procedures/MDM [place] [address] Radiology Main Line: [phone] DIAGNOSTIC IMAGING REPORT Patient: LEONID BARRAZA : 1990 Age: 27 Sex: F MR #: [id number] DOS: 05/23/18 0000 Ordering MD: MIGUEL BETTENCOURT MD Location: E/R Room/Bed: PROCEDURE: XR Chest 1 View CLINICAL INDICATION: cough TECHNIQUE: Single AP view of the chest was obtained COMPARISON: 04/16/2018 FINDINGS: Heart size is normal. Mediastinum is unremarkable. Lungs are clear. No pleural effusion or pneumothorax. No acute osseous abnormality. IMPRESSION: No acute pulmonary disease. RPTAT: PP Physician Noreen Date Time Electronically viewed and signed by Alta [place] Physician on 05/23/2018 17:45 ME/ CC: MIGUEL BETTENCOURT MD [id number] MEDICAL MAKING DECISION: The patient is a 27-year-old female, presenting with acute DKA due to acute medical noncompliance. She was treated via DKA protocol with good response The differential diagnoses considered include but are not limited to medical noncompliance, cystitis, pneumonia, dehydration Critical Care: Time: 35 minutes excluding all billable procedures. Treatments/Evaluations: Close monitoring and treatment of unstable vital signs, cardiorespiratory, and neurologic status, while maintaining tight balance of fluid, respiratory, and cardiac interventions. Departure Diagnosis: Primary Impression: DKA (diabetic ketoacidoses) Condition: Critical Comments The patient's blood pressure was elevated (>120/80) but appears stable without evidence of hypertension emergency or urgency. The patient was counseled about the risks of hypertension and urged to pursue outpatient monitoring and therapy within a week with their primary care physician. I discussed the findings with the patient. I discussed the patient with the hospitalist Dr Reardon at 4:50p who was made aware of the lab, the treatment, the patient condition. The patient is admitted to ICU Disclaimer: Inadvertent spelling and grammatical errors are likely due to EHR/dictation software use and do not reflect on the overall quality of patient care. Also, please note that the electronic time recorded on this note does not necessarily reflect the actual time of the patient encounter. MIGUEL BETTENCOURT MD May 23, 2018 14:59
[2018-05-23] MEDS ORDERED: ONDANSETRON 4 MG INJ ONE ×2 (15:16→16:48)
[2018-05-23] MEDS ORDERED: D10/0.45% NACL + KCL 40 MEQ 1,000 ML IV SCH (15:26)
[2018-05-23] MEDS ORDERED: SOD CHLORIDE 0.9% 1,000 ML IV SCH (15:26)
[2018-05-23] MEDS ORDERED: DEXTROSE 10 %/0.45 % NACL 1,000 ML IV SCH (15:26)
[2018-05-23] MEDS ORDERED: NS + KCL 40 MEQ 1,000 ML IV SCH (15:26)
[2018-05-23] MEDS ORDERED: SOD CHLORIDE 0.9% 640 ML IV ONE (15:30)
[2018-05-23] MEDS ORDERED: DEXTROSE 50% 50 ML SYRINGE IV PRN ×2 (15:30)
[2018-05-23] MEDS ORDERED: LACTATED RINGER'S 640 ML IV ONE (15:30)
[2018-05-23] MEDS: INSULIN REGULAR, HUMAN 100 UNIT in SOD CHLORIDE 0.9% 100 ML IV SCH ×2 (16:13)
[2018-05-23] MEDS: NS + KCL 30 MEQ 1,000 ML IV SCH ×2 (16:14→21:56)
[2018-05-23] MEDS: D10/0.45% NACL + KCL 30 MEQ 1,000 ML IV SCH (16:15)
[2018-05-23] MEDS ORDERED: INSU100C SQ (16:19)
[2018-05-23] MEDS ORDERED: INSU100I33 SC (16:19)
[2018-05-23] MEDS ORDERED: ONDANSETRON 4 MG INJ IV STA (16:45)
[2018-05-23] MEDS ORDERED: morphine 2 MG INJ IV STA (16:47)
[2018-05-23] MEDS: METOCLOPRAMIDE 10 MG INJ IV ONE ×2 (16:53→18:23)
--- NOTE | 2018-05-23 19:25 | HP ---
Date/Time of Note Date/Time of Note DATE: 05/23/18 TIME: 19:23 Assessment/Plan VTE Prophylaxis Pharmacological prophylaxis: LMWH Lines/Catheters IV Catheter Type (from Nrs): Saline Lock Assessment/Plan Hospital Course 1. DKA secondary to insulin noncompliance Patient has not used insulin for the past several days No evidence of infection DKA protocol Admit to ICU 2. Leukocytosis-active Chest x-ray and UA are negative for infection No indication for antibiotics Prophylaxis: Lovenox Result Diagram: 05/23/18 1518 05/23/18 1720 Results 24hrs Laboratory Tests Test 05/23/18 13:32 05/23/18 15:08 05/23/18 15:18 05/23/18 16:02 Bedside Glucose 347 H 371 H Blood Gas Blood venous Specimen Source Arterial Blood 05/23/2018 3:15:18 Date Drawn PM Arterial Blood VENOUS LINE Gas Puncture Site Yong Test N/A Venous Blood pH 7.172 *L Venous Blood 25.8 L pCO2 (Temp Corrected) Venous Blood pO2 32.3 H (Temp Corrected) Venous Blood 9.2 L HCO3 Venous Blood 60.4 Oxygen Saturation Venous Blood -17.5 L Base Excess Venous Blood 16.3 Total Hemoglobin Venous Blood 60.0 Oxyhemoglobin Venous Blood 0.2 Methemoglobin Carboxyhemoglobi 0.4 n Blood Gas 37.0 Temperature Blood Gas ROOM AIR Modality FiO2 21.[address] BETTENCOURT Critical Value Read Back Blood Gas RT Notified Whom Blood Gas 05/23/2018 3:23:05 Notified Time PM White Blood 16.3 #H Count Red Blood Count 5.87 H Hemoglobin 15.6 Hematocrit 47.6 H Mean Corpuscular 81.1 L Volume Mean Corpuscular 26.6 L Hemoglobin Mean Corpuscular 32.8 Hemoglobin Luci nt Red Cell 12.2 Distribution Width Platelet Count 455 #H Mean Platelet 10.0 Volume Immature 1.500 H Granulocytes % Neutrophils % 85.6 H Lymphocytes % 7.6 L Monocytes % 4.7 Eosinophils % 0.0 Basophils % 0.6 Nucleated Red 0.0 Blood Cells % Immature 0.240 H Granulocytes # Neutrophils # 14.0 H Lymphocytes # 1.2 Monocytes # 0.8 Eosinophils # 0.0 Basophils # 0.1 Nucleated Red 0.0 Blood Cells # Urine Color STRAW Urine Clarity SLIGHTLY CLOUDY A Urine pH 5.0 Urine Specific 1.014 [place] Urine Ketones 2+ H Urine Nitrite NEGATIVE Urine Bilirubin NEGATIVE Urine NEGATIVE Urobilinogen Urine Leukocyte NEGATIVE Esterase Urine 4 Microscopic RBC Urine 33 H Microscopic WBC Urine Squamous FEW Epithelial Cells Urine Bacteria FEW A Urine Hemoglobin 3+ H Urine Glucose 3+ H Urine Total 1+ H Protein Sodium Level 139 Potassium Level 3.9 Chloride Level 102 Carbon Dioxide 8 *L Level Anion Gap 29 H Blood Urea 11 Nitrogen Creatinine 0.55 Est Glomerular > 60 Filtrat Rate mL/min Glucose Level 432 *H Hemoglobin A1c 11.6 H Calcium Level 10.0 Phosphorus Level 4.3 Magnesium Level 2.0 Test 05/23/18 17:04 05/23/18 17:20 05/23/18 17:26 05/23/18 17:51 Bedside Glucose 392 H 328 H Sodium Level 143 Potassium Level 4.1 Chloride Level 107 Carbon Dioxide 10 L Level Anion Gap 26 H Blood Urea 11 Nitrogen Creatinine 0.44 Est Glomerular > 60 Filtrat Rate mL/min Glucose Level 330 H Calcium Level 9.3 Phosphorus Level 2.7 Magnesium Level 1.9 Blood Gas Blood venous Specimen Source Arterial Blood 05/23/2018 5:15:36 Date Drawn PM Arterial Blood VENOUS LINE Gas Puncture Site Yong Test N/A Venous Blood pH 7.154 *L Venous Blood 27.5 L pCO2 (Temp Corrected) Venous Blood pO2 34.0 H (Temp Corrected) Venous Blood 9.5 L HCO3 Venous Blood 63.3 Oxygen Saturation Venous Blood -17.8 L Base Excess Venous Blood 15.8 Total Hemoglobin Venous Blood 63.0 Oxyhemoglobin Venous Blood 0.2 Methemoglobin Carboxyhemoglobi 0.2 n Blood Gas 37.0 Temperature Blood Gas ROOM AIR Modality FiO2 21.[address] BETTENCOURT Critical Value Read Back Blood Gas RT Notified Whom Blood Gas 05/23/2018 5:24:20 Notified Time PM Test 05/23/18 18:51 Bedside Glucose 235 H HPI/ROS Admit Date/Time Admit Date/Time May 23, 2018 Hx of Present Illness Patient is a 27-year-old female with a history of type 2 diabetes with multiple hospitalizations for DKA. Patient was recently hospitalized for DKA 1 month ago. Patient presents with several days of worsening nausea vomiting and was again found to be in DKA and started on insulin drip in the ER. Patient has no other complaints at this time. ROS Constitutional: no complaints, improved Eyes: no complaints ENT: no complaints Respiratory: no complaints Cardiovascular: no complaints Gastrointestinal: nausea, vomiting Genitourinary: no complaints Musculoskeletal: no complaints Skin: no complaints Neurologic: no complaints Endocrine: no complaints Lymphatic: no complaints Psychological: no complaints, nl mood/affect Immunologic: no complaints PMH/Family/Social Past Medical History Medical History: diabetes Medications Current Medications Potassium Chloride/Sodium Chloride 1,000 ml @ 0 mls/hr Q0M IV ; Start 05/23/18 at 15:26 Potassium Chloride/Dextrose/ Sod Cl 1,000 ml @ 0 mls/hr Q0M IV ; Start 05/23/18 at 15:26 Potassium Chloride/Sodium Chloride 1,000 ml @ 0 mls/hr Q0M IV Last administered on 05/23/18at 16:14; Admin Dose 250 MLS/HR; Start 05/23/18 at 15:26 Potassium Chloride/Dextrose/ Sod Cl 1,000 ml @ 0 mls/hr Q0M IV Last administered on 05/23/18at 16:15; Admin Dose 0 MLS/HR; Start 05/23/18 at 15:26 Sodium Chloride 1,000 ml @ 0 mls/hr Q0M IV ; Start 05/23/18 at 15:26 Dextrose/Sodium Chloride 1,000 ml @ 0 mls/hr Q0M IV ; Start 05/23/18 at 15:26 Insulin Human Regular 100 unit/ Sodium Chloride 101 ml @ 6.41 mls/hr ER DKA PROTOCOL IV Last administered on 05/23/18at 16:13; Admin Dose 6.35 MLS/HR; Start 05/23/18 at 15:30 Miscellaneous Information (* Miscellaneous Pharmacy Order) HYPOGLYCEMIA TREATMENT HYPOGLYCEM PROTOCOL PRN XX .HYPOGLYCEMIA PROTOCOL; Start 05/23/18 at 1 5:30 Dextrose (D50w Syringe) 50 ml Q15M PRN IV .DECREASED GLUCOSE; Start 05/23/18 at 15:30 Dextrose (D50w Syringe) 25 ml Q15M PRN IV .DECREASED GLUCOSE; Start 05/23/18 at 15:30 Coded Allergies: No Known Allergies (Verified Allergy, Mild, 05/23/18) Past Surgical History x2 Family History Significant Family History: no pertinent family hx Social History Alcohol Use: rarely Smoking Status: Never smoker Drug Use: none Exam/Review of Systems Vital Signs Vitals Vital Signs Date Temp Pulse Resp B/P (MAP) Pulse Ox O2 O2 Flow FiO2 Time Delivery Rate 05/23/18 116 21 129/91 100 Room Air 18:44 (104) 05/23/18 97.7 13:28 Exam Constitutional: alert, oriented Respiratory: clear to auscultation Cardiovascular: regular rate and rhythm Gastrointestinal: soft; No distended Musculoskeletal: nl extremities to inspection CALLUM SCHOFIELD May 23, 2018 19:25
[2018-05-23] MEDS ORDERED: ACETAMINOPHEN 325 MG TAB PO PRN (19:30)
[2018-05-23] MEDS ORDERED: NACL 0.9% 3 ML SYG IV SCH (19:30)
[2018-05-23] MEDS ORDERED: ZOLPIDEM 5 MG TAB PO PRN (19:30)
[2018-05-23] MEDS ORDERED: morphine 2 MG INJ IV PRN (19:30)
[2018-05-23] MEDS ORDERED: HYDROCODONE/APAP (5/325) TAB PO PRN (19:30)
[2018-05-23] MEDS: ONDANSETRON 4 MG INJ IV PRN (20:54)
[2018-05-24] VITALS (15 sets, daily range): BP systolic 112–153; BP diastolic 76–96; PULSE 79–103; RESP 13–26; Ht 154.9 cm; Wt 63.5 kg
[2018-05-24] MEDS: D10/0.45% NACL + KCL 30 MEQ 1,000 ML IV SCH (02:36)
[2018-05-24] MEDS: INSULIN REGULAR, HUMAN 100 UNIT in SOD CHLORIDE 0.9% 100 ML IV SCH ×2 (03:50)
[2018-05-24] MEDS ORDERED: INSULIN GLARGINE [LANTus] (100 UNITS/ML) SYG SC SCH (06:00)
[2018-05-24] MEDS: ONDANSETRON 4 MG INJ IV PRN ×3 (06:41→21:24)
[2018-05-24] MEDS ORDERED: LORAZEPAM 2 MG INJ IV ONE (07:00)
[2018-05-24] MEDS: INSULIN ASPART [NOVOLOG] 3 ML PEN SC SCH ×5 (08:41→21:00)
[2018-05-24] MEDS: ENOXAPARIN 40 MG/0.4 ML SYG SC SCH (08:46)
[2018-05-24] MEDS ORDERED: METOCLOPRAMIDE 10 MG INJ IV ONE (15:00)
[2018-05-24] MEDS ORDERED: POTASSIUM CHLORIDE (SR) 20 MEQ TAB PO STA (16:12)
--- NOTE | 2018-05-24 16:13 | PN ---
Date/Time of Note Date/Time of Note DATE: 05/24/18 TIME: 16:11 Assessment/Plan VTE Prophylaxis Risk score (from Nsg)>0 risk: 1 Pharmacological prophylaxis: LMWH Lines/Catheters IV Catheter Type (from Nrsg): Peripheral IV Urinary Cath still in place: No Assessment/Plan Hospital Course 1. DKA secondary to insulin noncompliance-resolved DC DKA protocol Transition to subcu insulin Patient tolerating diabetic diet at this time Downgrade to [facility] 2. Leukocytosis-reactive Chest x-ray and UA are negative for infection No indication for antibiotics 3. Hypokalemia Replete Prophylaxis: Lovenox Result Diagram: 05/23/18 1518 05/24/18 1132 Results 24hrs Laboratory Tests Test 05/23/18 17:04 05/23/18 17:20 05/23/18 17:26 05/23/18 17:51 Bedside Glucose 392 H 328 H Sodium Level 143 Potassium Level 4.1 Chloride Level 107 Carbon Dioxide 10 L Level Anion Gap 26 H Blood Urea 11 Nitrogen Creatinine 0.44 Est Glomerular > 60 Filtrat Rate mL/min Glucose Level 330 H Calcium Level 9.3 Phosphorus 2.7 Level Magnesium Level 1.9 Blood Gas Blood venous Specimen Source Arterial Blood 05/23/2018 5:15:3 Date Drawn 6 PM Arterial Blood VENOUS LINE Gas Puncture Site Yong Test N/A Venous Blood pH 7.154 *L Venous Blood 27.5 L pCO2 (Temp Corrected ) Venous Blood 34.0 H pO2 (Temp Corrected ) Venous Blood 9.5 L HCO3 Venous Blood 63.3 Oxygen Saturation Venous Blood -17.8 L Base Excess Venous Blood 15.8 Total Hemoglobin Venous Blood 63.0 Oxyhemoglobin Venous Blood 0.2 Methemoglobin Carboxyhemoglob 0.2 in Blood Gas 37.0 Temperature Blood Gas ROOM AIR Modality FiO2 21.[address] BETTENCOURT Critical Value Read Back Blood Gas RT Notified Whom Blood Gas 05/23/2018 5:24:2 Notified Time 0 PM Test 05/23/18 18:51 05/23/18 19:15 05/23/18 20:00 05/23/18 21:00 Bedside Glucose 235 H 239 H Sodium Level 144 Potassium Level 3.9 Chloride Level 111 H Carbon Dioxide 10 L Level Anion Gap 23 H Blood Urea 11 Nitrogen Creatinine 0.43 L Est Glomerular > 60 Filtrat Rate mL/min Glucose Level 279 H Calcium Level 9.0 Phosphorus 2.1 L Level Magnesium Level 1.9 Blood Gas Blood venous Specimen Source Arterial Blood 05/23/2018 7:35:5 Date Drawn 5 PM Arterial Blood VENOUS LINE Gas Puncture Site Yong Test N/A Venous Blood pH 7.235 L Venous Blood 26.9 L pCO2 (Temp Corrected ) Venous Blood 47.0 H pO2 (Temp Corrected ) Venous Blood 11.1 L HCO3 Venous Blood 82.3 H Oxygen Saturation Venous Blood -14.6 L Base Excess Venous Blood 14.2 Total Hemoglobin Venous Blood 81.8 Oxyhemoglobin Venous Blood 0.3 Methemoglobin Carboxyhemoglob 0.3 in Blood Gas 37.0 Temperature Blood Gas ROOM AIR Modality FiO2 21.0 Blood Gas UP Notified Whom Blood Gas 05/23/2018 7:51:5 Notified Time 8 PM Test 05/23/18 21:10 05/23/18 22:07 05/23/18 23:13 05/23/18 23:26 Bedside Glucose 265 H 300 H 249 H Blood Gas Blood venous Specimen Source Arterial Blood 05/23/2018 11:30: Date Drawn 00 PM Arterial Blood VENOUS LINE Gas Puncture Site Yong Test N/A Venous Blood pH 7.290 L Venous Blood 33.2 L pCO2 (Temp Corrected ) Venous Blood 40.8 H pO2 (Temp Corrected ) Venous Blood 15.6 L HCO3 Venous Blood 80.3 H Oxygen Saturation Venous Blood -9.8 L Base Excess Venous Blood 14.4 Total Hemoglobin Venous Blood 79.8 Oxyhemoglobin Venous Blood 0.2 Methemoglobin Carboxyhemoglob 0.4 in Blood Gas 37.0 Temperature Blood Gas ROOM AIR Modality FiO2 21.0 Blood Gas UP Notified Whom Blood Gas 05/23/2018 11:44: Notified Time 31 PM Test 05/23/18 23:36 05/24/18 00:08 05/24/18 00:58 05/24/18 02:01 Sodium Level 145 H Potassium Level 4.0 Chloride Level 115 H Carbon Dioxide 15 L Level Anion Gap 15 #H Blood Urea 9 Nitrogen Creatinine 0.37 L Est Glomerular > 60 Filtrat Rate mL/min Glucose Level 274 H Calcium Level 8.8 Phosphorus 1.1 #L Level Magnesium Level 1.9 Bedside Glucose 251 H 256 H 291 H Test 05/24/18 03:17 05/24/18 03:26 05/24/18 03:39 05/24/18 04:09 Bedside Glucose 244 H 265 H Blood Gas Blood venous Specimen Source Arterial Blood 05/24/2018 3:35:5 Date Drawn 0 AM Arterial Blood VENOUS LINE Gas Puncture Site Yong Test N/A Venous Blood pH 7.372 Venous Blood 40.1 pCO2 (Temp Corrected ) Venous Blood 24.2 L pO2 (Temp Corrected ) Venous Blood 22.8 HCO3 Venous Blood 55.3 Oxygen Saturation Venous Blood -2.3 Base Excess Venous Blood 11.7 Total Hemoglobin Venous Blood 55.2 Oxyhemoglobin Venous Blood 0.1 Methemoglobin Carboxyhemoglob 0.1 in Blood Gas 37.0 Temperature Blood Gas ROOM AIR Modality FiO2 21.0 Blood Gas UP Notified Whom Blood Gas 05/24/2018 3:47:3 Notified Time 1 AM Sodium Level 141 Potassium Level 3.7 Chloride Level 112 H Carbon Dioxide 20 L Level Anion Gap 9 # Blood Urea 7 Nitrogen Creatinine 0.31 L Est Glomerular > 60 Filtrat Rate mL/min Glucose Level 286 H Hemoglobin A1c 12.8 H Calcium Level 8.3 L Phosphorus 1.0 L Level Magnesium Level 1.8 Test 05/24/18 05:16 05/24/18 06:10 05/24/18 06:40 05/24/18 07:03 Bedside Glucose 244 H 248 H 234 H 252 H Test 05/24/18 07:37 05/24/18 08:29 05/24/18 09:28 05/24/18 10:14 Sodium Level 140 Potassium Level 3.4 L Chloride Level 109 Carbon Dioxide 22 Level Anion Gap 9 Blood Urea 6 L Nitrogen Creatinine 0.28 L Est Glomerular > 60 Filtrat Rate mL/min Glucose Level 263 H Calcium Level 8.3 L Phosphorus 0.7 L Level Magnesium Level 1.8 Bedside Glucose 231 H 220 217 Test 05/24/18 11:32 05/24/18 12:10 05/24/18 13:11 05/24/18 15:02 Sodium Level 140 Potassium Level 3.4 L Chloride Level 110 Carbon Dioxide 22 Level Anion Gap 8 Blood Urea 5 L Nitrogen Creatinine 0.26 L Est Glomerular > 60 Filtrat Rate mL/min Glucose Level 186 Calcium Level 8.5 Phosphorus 0.8 L Level Magnesium Level 1.8 Bedside Glucose 201 234 H 182 Subjective 24 Hr Interval Summary Constitutional: no complaints Exam/Review of Systems Exam Vitals Vital Signs Date Temp Pulse Resp B/P (MAP) Pulse Ox O2 O2 Flow FiO2 Time Delivery Rate 05/24/18 90 18 150/88 100 Nasal 2.0 15:00 (108) Cannula 05/24/18 98.5 12:00 Constitutional: alert, oriented Respiratory: clear to auscultation Cardiovascular: regular rate and rhythm Gastrointestinal: soft; No distended Musculoskeletal: nl extremities to inspection Results Results 24hrs Laboratory Tests Test 05/23/18 17:04 05/23/18 17:20 05/23/18 17:26 05/23/18 17:51 Bedside Glucose 392 H 328 H Sodium Level 143 Potassium Level 4.1 Chloride Level 107 Carbon Dioxide 10 L Level Anion Gap 26 H Blood Urea 11 Nitrogen Creatinine 0.44 Est Glomerular > 60 Filtrat Rate mL/min Glucose Level 330 H Calcium Level 9.3 Phosphorus 2.7 Level Magnesium Level 1.9 Blood Gas Blood venous Specimen Source Arterial Blood 05/23/2018 5:15:3 Date Drawn 6 PM Arterial Blood VENOUS LINE Gas Puncture Site Yong Test N/A Venous Blood pH 7.154 *L Venous Blood 27.5 L pCO2 (Temp Corrected ) Venous Blood 34.0 H pO2 (Temp Corrected ) Venous Blood 9.5 L HCO3 Venous Blood 63.3 Oxygen Saturation Venous Blood -17.8 L Base Excess Venous Blood 15.8 Total Hemoglobin Venous Blood 63.0 Oxyhemoglobin Venous Blood 0.2 Methemoglobin Carboxyhemoglob 0.2 in Blood Gas 37.0 Temperature Blood Gas ROOM AIR Modality FiO2 21.[address] BETTENCOURT Critical Value Read Back Blood Gas RT Notified Whom Blood Gas 05/23/2018 5:24:2 Notified Time 0 PM Test 05/23/18 18:51 05/23/18 19:15 05/23/18 20:00 05/23/18 21:00 Bedside Glucose 235 H 239 H Sodium Level 144 Potassium Level 3.9 Chloride Level 111 H Carbon Dioxide 10 L Level Anion Gap 23 H Blood Urea 11 Nitrogen Creatinine 0.43 L Est Glomerular > 60 Filtrat Rate mL/min Glucose Level 279 H Calcium Level 9.0 Phosphorus 2.1 L Level Magnesium Level 1.9 Blood Gas Blood venous Specimen Source Arterial Blood 05/23/2018 7:35:5 Date Drawn 5 PM Arterial Blood VENOUS LINE Gas Puncture Site Yong Test N/A Venous Blood pH 7.235 L Venous Blood 26.9 L pCO2 (Temp Corrected ) Venous Blood 47.0 H pO2 (Temp Corrected ) Venous Blood 11.1 L HCO3 Venous Blood 82.3 H Oxygen Saturation Venous Blood -14.6 L Base Excess Venous Blood 14.2 Total Hemoglobin Venous Blood 81.8 Oxyhemoglobin Venous Blood 0.3 Methemoglobin Carboxyhemoglob 0.3 in Blood Gas 37.0 Temperature Blood Gas ROOM AIR Modality FiO2 21.0 Blood Gas UP Notified Whom Blood Gas 05/23/2018 7:51:5 Notified Time 8 PM Test 05/23/18 21:10 05/23/18 22:07 05/23/18 23:13 05/23/18 23:26 Bedside Glucose 265 H 300 H 249 H Blood Gas Blood venous Specimen Source Arterial Blood 05/23/2018 11:30: Date Drawn 00 PM Arterial Blood VENOUS LINE Gas Puncture Site Yong Test N/A Venous Blood pH 7.290 L Venous Blood 33.2 L pCO2 (Temp Corrected ) Venous Blood 40.8 H pO2 (Temp Corrected ) Venous Blood 15.6 L HCO3 Venous Blood 80.3 H Oxygen Saturation Venous Blood -9.8 L Base Excess Venous Blood 14.4 Total Hemoglobin Venous Blood 79.8 Oxyhemoglobin Venous Blood 0.2 Methemoglobin Carboxyhemoglob 0.4 in Blood Gas 37.0 Temperature Blood Gas ROOM AIR Modality FiO2 21.0 Blood Gas UP Notified Whom Blood Gas 05/23/2018 11:44: Notified Time 31 PM Test 05/23/18 23:36 05/24/18 00:08 05/24/18 00:58 05/24/18 02:01 Sodium Level 145 H Potassium Level 4.0 Chloride Level 115 H Carbon Dioxide 15 L Level Anion Gap 15 #H Blood Urea 9 Nitrogen Creatinine 0.37 L Est Glomerular > 60 Filtrat Rate mL/min Glucose Level 274 H Calcium Level 8.8 Phosphorus 1.1 #L Level Magnesium Level 1.9 Bedside Glucose 251 H 256 H 291 H Test 05/24/18 03:17 05/24/18 03:26 05/24/18 03:39 05/24/18 04:09 Bedside Glucose 244 H 265 H Blood Gas Blood venous Specimen Source Arterial Blood 05/24/2018 3:35:5 Date Drawn 0 AM Arterial Blood VENOUS LINE Gas Puncture Site Yong Test N/A Venous Blood pH 7.372 Venous Blood 40.1 pCO2 (Temp Corrected ) Venous Blood 24.2 L pO2 (Temp Corrected ) Venous Blood 22.8 HCO3 Venous Blood 55.3 Oxygen Saturation Venous Blood -2.3 Base Excess Venous Blood 11.7 Total Hemoglobin Venous Blood 55.2 Oxyhemoglobin Venous Blood 0.1 Methemoglobin Carboxyhemoglob 0.1 in Blood Gas 37.0 Temperature Blood Gas ROOM AIR Modality FiO2 21.0 Blood Gas UP Notified Whom Blood Gas 05/24/2018 3:47:3 Notified Time 1 AM Sodium Level 141 Potassium Level 3.7 Chloride Level 112 H Carbon Dioxide 20 L Level Anion Gap 9 # Blood Urea 7 Nitrogen Creatinine 0.31 L Est Glomerular > 60 Filtrat Rate mL/min Glucose Level 286 H Hemoglobin A1c 12.8 H Calcium Level 8.3 L Phosphorus 1.0 L Level Magnesium Level 1.8 Test 05/24/18 05:16 05/24/18 06:10 05/24/18 06:40 05/24/18 07:03 Bedside Glucose 244 H 248 H 234 H 252 H Test 05/24/18 07:37 05/24/18 08:29 05/24/18 09:28 05/24/18 10:14 Sodium Level 140 Potassium Level 3.4 L Chloride Level 109 Carbon Dioxide 22 Level Anion Gap 9 Blood Urea 6 L Nitrogen Creatinine 0.28 L Est Glomerular > 60 Filtrat Rate mL/min Glucose Level 263 H Calcium Level 8.3 L Phosphorus 0.7 L Level Magnesium Level 1.8 Bedside Glucose 231 H 220 217 Test 05/24/18 11:32 05/24/18 12:10 05/24/18 13:11 05/24/18 15:02 Sodium Level 140 Potassium Level 3.4 L Chloride Level 110 Carbon Dioxide 22 Level Anion Gap 8 Blood Urea 5 L Nitrogen Creatinine 0.26 L Est Glomerular > 60 Filtrat Rate mL/min Glucose Level 186 Calcium Level 8.5 Phosphorus 0.8 L Level Magnesium Level 1.8 Bedside Glucose 201 234 H 182 Medications Medication Current Medications IV Flush (NS 3 ml) 3 ml PER PROTOCOL IV ; Start 05/23/18 at 19:30 Ondansetron HCl (Zofran Inj) 4 mg Q6H PRN IV NAUSEA/VOMITING Last administered on 05/24/18at 13:59; Admin Dose 4 MG; Start 05/23/18 at 19:30 Acetaminophen (Tylenol Tab) 650 mg Q6H PRN PO .PAIN 1-3 OR TEMP; Start 05/23/18 at 19:30 Acetaminophen/ Hydrocodone Bitart ([place] (5/325)) 1 tab Q6H PRN PO .MOD PAIN 4- 6; Start 05/23/18 at 19:30 Morphine Sulfate (morphine) 2 mg Q4H PRN IV .SEVERE PAIN 7-10; Start 05/23/18 at 19:30 Zolpidem Tartrate (Ambien) 5 mg QHS PRN PO .INSOMNIA; Start 05/23/18 at 19:30 Enoxaparin Sodium (Lovenox) 40 mg DAILY SC Last administered on 05/24/18at 08:46; Admin Dose 40 MG; Start 05/24/18 at 09:00 Diagnostic Test (Pha) (Accu-Chek) 1 XX ; Start 05/25/18 at 02:00 Insulin Aspart (Novolog Insulin Pen) NOVOLOG *MODERATE* ALGORI... Q4 SC Last administered on 05/24/18at 13:13; Admin Dose 6 UNIT; Start 05/24/18 at 09:00 Insulin Glargine (Lantus) 30 units DAILY@0800 SC ; Start 05/25/18 at 08:00; Status UNV Insulin Aspart (Novolog Insulin Pen) 10 unit WITH MEALS SC ; Start 05/24/18 at 17:35; Status UNV Miscellaneous Information (* Miscellaneous Pharmacy Order) Discontinue current oral sulfonylur... ONCE ONCE XX ; Start 05/24/18 at 16:30; Stop 05/24/18 at 16:31; Status UNV Diagnostic Test (Pha) (Accu-Chek) 1 XX ; Start 05/25/18 at 02:00; Status UNV Miscellaneous Information (* Miscellaneous Pharmacy Order) HYPOGLYCEMIA PROTOCOL w... ONCE ONCE XX ; Start 05/24/18 at 16:30; Stop 05/24/18 at 16:31; Status UNV Insulin Aspart (Novolog Insulin Pen) NOVOLOG *MILD* ALGORITHM WITH MEALS BEDTIME SC ; Start 05/24/18 at 17:35; Status UNV Miscellaneous Information (* Miscellaneous Pharmacy Order) Discontinue all previ... ONCE ONCE XX ; Start 05/24/18 at 16:30; Stop 05/24/18 at 16:31; Status UNV CALLUM SCHOFIELD May 24, 2018 16:13
[2018-05-24] MEDS ORDERED: GLUCOSE GEL 15 GRAM TUBE PO PRN ×2 (16:30)
[2018-05-24] MEDS ORDERED: DEXTROSE 50% 50 ML SYRINGE IV PRN ×2 (16:30)
[2018-05-24] MEDS ORDERED: GLUCAGON 1 MG INJ IM PRN (16:30)
[2018-05-24] MEDS ORDERED: GLUCOSE GEL 15 GRAM TUBE BUCCAL PRN (16:30)
[2018-05-24] MEDS ORDERED: METOCLOPRAMIDE 10 MG INJ ONE (23:55)
[2018-05-25] MEDS ORDERED: METOCLOPRAMIDE 10 MG INJ IV ONE
[2018-05-25 02:00] VITALS: BP 131/87; PULSE 93; RESP 18
[2018-05-25] MEDS ORDERED: ACCU-CHEK XX SCH (02:00)
[2018-05-25] MEDS: ACCU-CHEK XX SCH (02:00)
[2018-05-25] MEDS: ONDANSETRON 4 MG INJ IV PRN (06:42)
[2018-05-25 07:59] VITALS: BP 133/82; PULSE 91; RESP 16
[2018-05-25] MEDS ORDERED: INSULIN GLARGINE [LANTus] (100 UNITS/ML) SYG SC SCH (08:00)
[2018-05-25] MEDS: ENOXAPARIN 40 MG/0.4 ML SYG SC SCH (08:40)
[2018-05-25] MEDS ORDERED: METOCLOPRAMIDE 10 MG INJ IV PRN (09:00)
[2018-05-25] MEDS: INSULIN ASPART [NOVOLOG] 3 ML PEN SC SCH ×6 (09:43→20:30)
[2018-05-25] MEDS ORDERED: MAGNESIUM SULFATE 2 GM/50 ML 50 ML IVPB ONE (13:30)
[2018-05-25] MEDS ORDERED: ONDANSETRON 4 MG INJ IV PRN (13:30)
[2018-05-25] MEDS: POTASSIUM CHLORIDE 40 MEQ in SOD CHLORIDE 0.9% 1,000 ML IV SCH (14:12)
[2018-05-25 14:15] VITALS: BP 118/74; PULSE 88; RESP 16
--- NOTE | 2018-05-25 14:31 | PN ---
Date/Time of Note Date/Time of Note DATE: 05/25/18 TIME: 14:29 Assessment/Plan VTE Prophylaxis Risk score (from Nsg)>0 risk: 0 SCD applied (from Nsg): Yes Pharmacological prophylaxis: LMWH Lines/Catheters IV Catheter Type (from Nrsg): Peripheral IV Urinary Cath still in place: No Assessment/Plan Hospital Course 1. DKA secondary to insulin noncompliance-resolved Status post DKA protocol Increase basal and mealtime regimen secondary to persistent hyperglycemia Patient tolerating diabetic diet at this time 2. Leukocytosis-reactive Chest x-ray and UA are negative for infection No indication for antibiotics 3. Hypokalemia Replete 4. Tractable nausea and vomiting likely secondary to gastroparesis and/or recent DKA Increase Zofran dose, patient prefers not to use Reglan IV fluids Prophylaxis: Lovenox DC planning: Patient with persistent nausea and vomiting, anticipate DC home tomorrow if nausea resolves Result Diagram: 05/25/18 0715 05/25/18 0715 Results 24hrs Laboratory Tests Test 05/24/18 15:02 05/24/18 15:30 05/24/18 17:28 05/24/18 21:29 Bedside Glucose 182 193 123 Sodium Level 136 Potassium Level 3.2 L Chloride Level 102 Carbon Dioxide Level 20 L Anion Gap 14 H Blood Urea Nitrogen 4 L Creatinine 0.25 L Est Glomerular > 60 Filtrat Rate mL/min Glucose Level 209 Calcium Level 8.4 Phosphorus Level 1.1 L Magnesium Level 1.7 Test 05/25/18 07:15 05/25/18 07:58 05/25/18 09:39 05/25/18 12:22 White Blood Count 11.3 #H Red Blood Count 4.92 Hemoglobin 12.9 Hematocrit 38.7 Mean Corpuscular 78.7 L Volume Mean Corpuscular 26.2 L Hemoglobin Mean Corpuscular 33.3 Hemoglobin Concent Red Cell 12.5 Distribution Width Platelet Count 374 Mean Platelet Volume 9.4 Immature 0.800 H Granulocytes % Neutrophils % 77.7 H Lymphocytes % 10.4 L Monocytes % 10.2 Eosinophils % 0.4 Basophils % 0.5 Nucleated Red Blood 0.0 Cells % Immature 0.090 H Granulocytes # Neutrophils # 8.7 H Lymphocytes # 1.2 Monocytes # 1.2 H Eosinophils # 0.1 Basophils # 0.1 Nucleated Red Blood 0.0 Cells # Sodium Level 137 Potassium Level 3.5 Chloride Level 97 Carbon Dioxide Level 22 Anion Gap 18 H Blood Urea Nitrogen 3 L Creatinine 0.32 L Est Glomerular > 60 Filtrat Rate mL/min Glucose Level 252 H Calcium Level 8.9 Magnesium Level 1.8 Bedside Glucose 266 H 249 H 175 Subjective 24 Hr Interval Summary Gastrointestinal: nausea Exam/Review of Systems Exam Vitals Vital Signs Date Temp Pulse Resp B/P (MAP) Pulse Ox O2 O2 Flow FiO2 Time Delivery Rate 05/25/18 98.6 88 16 118/74 100 14:15 (89) 05/24/18 Room Air 20:00 05/24/18 2.0 16:00 Intake and Output 05/24/18 05/24/18 05/25/18 1515:00 23:00 07:00 IntakeIntake Total 2011.54 ml 550 ml BalanceBalance 2010.54 ml 550 ml Constitutional: alert, oriented Respiratory: clear to auscultation Cardiovascular: regular rate and rhythm Gastrointestinal: soft; No distended Musculoskeletal: nl extremities to inspection Results Results 24hrs Laboratory Tests Test 05/24/18 15:02 05/24/18 15:30 05/24/18 17:28 05/24/18 21:29 Bedside Glucose 182 193 123 Sodium Level 136 Potassium Level 3.2 L Chloride Level 102 Carbon Dioxide Level 20 L Anion Gap 14 H Blood Urea Nitrogen 4 L Creatinine 0.25 L Est Glomerular > 60 Filtrat Rate mL/min Glucose Level 209 Calcium Level 8.4 Phosphorus Level 1.1 L Magnesium Level 1.7 Test 05/25/18 07:15 05/25/18 07:58 05/25/18 09:39 05/25/18 12:22 White Blood Count 11.3 #H Red Blood Count 4.92 Hemoglobin 12.9 Hematocrit 38.7 Mean Corpuscular 78.7 L Volume Mean Corpuscular 26.2 L Hemoglobin Mean Corpuscular 33.3 Hemoglobin Concent Red Cell 12.5 Distribution Width Platelet Count 374 Mean Platelet Volume 9.4 Immature 0.800 H Granulocytes % Neutrophils % 77.7 H Lymphocytes % 10.4 L Monocytes % 10.2 Eosinophils % 0.4 Basophils % 0.5 Nucleated Red Blood 0.0 Cells % Immature 0.090 H Granulocytes # Neutrophils # 8.7 H Lymphocytes # 1.2 Monocytes # 1.2 H Eosinophils # 0.1 Basophils # 0.1 Nucleated Red Blood 0.0 Cells # Sodium Level 137 Potassium Level 3.5 Chloride Level 97 Carbon Dioxide Level 22 Anion Gap 18 H Blood Urea Nitrogen 3 L Creatinine 0.32 L Est Glomerular > 60 Filtrat Rate mL/min Glucose Level 252 H Calcium Level 8.9 Magnesium Level 1.8 Bedside Glucose 266 H 249 H 175 Medications Medication Current Medications IV Flush (NS 3 ml) 3 ml PER PROTOCOL IV ; Start 05/23/18 at 19:30 Acetaminophen (Tylenol Tab) 650 mg Q6H PRN PO .PAIN 1-3 OR TEMP; Start 05/23/18 at 19:30 Acetaminophen/ Hydrocodone Bitart ([place] (5/325)) 1 tab Q6H PRN PO .MOD PAIN 4- 6; Start 05/23/18 at 19:30 Morphine Sulfate (morphine) 2 mg Q4H PRN IV .SEVERE PAIN 7-10; Start 05/23/18 at 19:30 Zolpidem Tartrate (Ambien) 5 mg QHS PRN PO .INSOMNIA; Start 05/23/18 at 19:30 Enoxaparin Sodium (Lovenox) 40 mg DAILY SC Last administered on 05/25/18at 08:4 0; Admin Dose 40 MG; Start 05/24/18 at 09:00 Diagnostic Test (Pha) (Accu-Chek) 1 ea 02 XX ; Start 05/25/18 at 02:00 Insulin Aspart (Novolog Insulin Pen) NOVOLOG *MILD* ALGORITHM WITH MEALS BEDTIME SC Last administered on 05/25/18at 12:35; Admin Dose 1 UNIT; Start 05/24/18 at 17:35 Miscellaneous Information 1 ea NOTE XX ; Start 05/24/18 at 16:30 Glucose (Glutose) 15 gm Q15M PRN PO DECREASED GLUCOSE; Start 05/24/18 at 16:30 Glucose (Glutose) 22.5 gm Q15M PRN PO DECREASED GLUCOSE; Start 05/24/18 at 16:30 Dextrose (D50w Syringe) 25 ml Q15M PRN IV DECREASED GLUCOSE; Start 05/24/18 at 16:30 Dextrose (D50w Syringe) 50 ml Q15M PRN IV DECREASED GLUCOSE; Start 05/24/18 at 16:30 Glucagon (Glucagen) 1 mg Q15M PRN IM DECREASED GLUCOSE; Start 05/24/18 at 16:30 Glucose (Glutose) 15 gm Q15M PRN BUCCAL DECREASED GLUCOSE; Start 05/24/18 at 16:30 Metoclopramide HCl (Reglan) 10 mg Q6H PRN IV NAUSEA AND/OR VOMITING; Start 05/25/18 at 09:00 Potassium Chloride 40 meq/ Sodium Chloride 1,000 ml @ 100 mls/hr Q10H IV Last administered on 05/25/18at 14:12; Admin Dose 100 MLS/HR; Start 05/25/18 at 13:30 Magnesium Sulfate 50 ml @ 25 mls/hr ONCE ONCE IVPB Last administered on 05/25/18at 14:12; Admin Dose 25 MLS/HR; Start 05/25/18 at 13:30; Stop 05/25/18 at 15:29 Insulin Aspart (Novolog Insulin Pen) 12 unit WITH MEALS SC ; Start 05/25/18 at 17:35 Insulin Glargine (Lantus) 35 units DAILY@0800 SC ; Start 05/26/18 at 08:00 Ondansetron HCl 8 mg/Sodium Chloride 54 ml @ 216 mls/hr Q6H PRN IV NAUSEA AND/OR VOMITING; Start 05/25/18 at 12:30 CALLUM SCHOFIELD May 25, 2018 14:31
[2018-05-25 20:04] VITALS: BP 133/83; PULSE 83; RESP 20
[2018-05-25] MEDS: ONDANSETRON INJ 8 MG in SOD CHLORIDE 0.9% 50 ML IV PRN (20:51)
[2018-05-26] MEDS: POTASSIUM CHLORIDE 40 MEQ in SOD CHLORIDE 0.9% 1,000 ML IV SCH ×3 (01:33→12:44)
[2018-05-26] MEDS: ACCU-CHEK XX SCH (02:00)
[2018-05-26 03:12] VITALS: BP 115/82; PULSE 86; RESP 20
[2018-05-26] MEDS: ONDANSETRON INJ 8 MG in SOD CHLORIDE 0.9% 50 ML IV PRN (03:16)
[2018-05-26 07:15] VITALS: BP 134/91; PULSE 86; RESP 16
[2018-05-26] MEDS: INSULIN ASPART [NOVOLOG] 3 ML PEN SC SCH ×6 (07:58→17:30)
[2018-05-26] MEDS ORDERED: INSULIN GLARGINE [LANTus] (100 UNITS/ML) SYG SC SCH (08:00)
[2018-05-26] MEDS: ENOXAPARIN 40 MG/0.4 ML SYG SC SCH (08:01)
--- NOTE | 2018-05-26 11:33 | PDOCDIS ---
Discharge Instructions CONDITION [id number] Patient Condition: [id number] Good HOME CARE INSTRUCTIONS: [id number] Special Diet: [id number] DIABETIC ACTIVITY: [id number] Activity Restrictions: [id number] No Restrictions FOLLOW UP/APPOINTMENTS Follow-up Plan FOLLOW UP WITH YOUR PCP IN 1-2 WEEKS CALLUM SCHOFIELD May 26, 2018 11:33
[2018-05-26 14:05] VITALS: BP 123/76; PULSE 85; RESP 16
[2018-05-26] MEDS ORDERED: INSULIN ASPART [NOVOLOG] 3 ML PEN SC ONE (14:30)
--- NOTE | 2018-05-26 14:56 | DS ---
Date/Time of Note Date/Time of Note DATE: 05/26/18 TIME: 14:50 Discharge Summary Admission/Discharge Info Admit Date/Time May 23, 2018 at 16:54 Discharge Date/Time May 26, 2018 Discharge Diagnosis 1. DKA secondary to insulin noncompliance-resolved Status post DKA protocol Increased basal and mealtime regimen secondary to persistent hyperglycemia in house but sugars now stable Continue home regimen, patient needed temporary increase in regimen due to hyperglycemia but now that sugars are stable anticipate stable serum glucose with home regimen as long as patient is compliant Insulin compliance strongly urged Patient tolerating diabetic diet at this time 2. Leukocytosis-reactive Chest x-ray and UA are negative for infection No indication for antibiotics 3. Hypokalemia Repleted 4. Intractable nausea and vomiting likely secondary to gastroparesis and/or recent DKA-resolved Status post Zofran and IV fluids Patient Condition: Good Hospital Course Patient is a 27-year-old female with a history of type 2 diabetes with multiple hospitalizations for DKA. Patient presented once again with DKA was placed on DKA protocol with resolution. Patient did have persistent nausea and vomiting as well as hypokalemia after resolution of DKA, patient was given Zofran IV as well as fluids with resolution of nausea and vomiting. Patient is not compliant with insulin regimen and compliance was strongly urged. On the day of discharge patient's vitals, labs and physical exam are stable. Home Meds Reported Medications Insulin Lispro (Humalog) 100 Unit/1 Ml Cartridge, 10 UNIT SQ WITH MEALS, EA 05/23/18 Insulin Glargine,Hum.rec.anlog (Basaglar Kwikpen U-100) 100 Unit/1 Ml Insuln.pen, 30 UNIT SC QAM, EA 05/23/18 Discontinued Scripts [Insulin Glargine] 100 UNITS/ML SOLN No Conflict Check, 30 UNITS SC DAILY@0800 Prov:DERRICK NGUYEN MD 04/19/18 Repaglinide* (Prandin*) 2 Mg Tablet, 2 MG PO AC MEALS, #30 TAB Prov:DERRICK NGUYEN MD 04/19/18 Follow-up Plan FOLLOW UP WITH YOUR PCP IN 1-2 WEEKS Primary Care Provider Not On Staff Doctor Time spent on discharge: > 30 minutes CALLUM SCHOFIELD May 26, 2018 14:56
[2018-05-26] MEDS ORDERED: ACCU-CHEK XX SCH (17:00)
== END 2018-05-26 18:50 | disposition home or self-care (01) | DRG 639 ==
LOC: E/R 13:22 → ICU 16:54 → PP2 05-24 20:37
PROVIDERS: ADMIT Internal Medicine; ATTEND Internal Medicine
DX: E11.10 Type 2 diabetes mellitus with ketoacidosis without coma (principal); K31.84 Gastroparesis; E87.6 Hypokalemia; E86.0 Dehydration; E11.43 Type 2 diabetes mellitus with diabetic autonomic (poly)neuropathy; Z79.4 Long term (current) use of insulin; Z91.14 Patient's other noncompliance with medication regimen
CPT/HCPCS: 36415; 71045; 80048; 81001; 82803; 82962; 83036; 83735; 84100; 85025; 87081; 96374; J1650; J1815; J2060; J2270; J2405; J2765; J3475; J3480; J7030; J7120

== ENCOUNTER 2018-08-09 17:02 | Emergency (ER) | payer OTHER ==
[~2018-08-09] VITALS: Ht 160 cm; Wt 66.6 kg
[~2018-08-09 17:02] MED LIST changes: +INSU100C SQ; +INSU100I33 SC; -Insulin Glargine SC; -REPA2TAB23 PO
[2018-08-09 17:22] VITALS: Ht 160 cm; Wt 66.6 kg
--- NOTE | 2018-08-09 21:31 | ERD ---
ER Documentation Chief Complaint Chief Complaint cough x 1 week, glucose 373 HPI 27 years old with past medical history of diabetes type 2 with multiple bouts of DKA who presents with complaint of hyperglycemia. Patient seen at [facility] and noticed with a glucose of 361 and instructed to proceed to ED for further evaluation. Patient states he has run out of her insulin medications and has not taken her insulin in over a month. She has had issues getting prescriptions. She also had dry cough and mild sore throat but denies fevers, chills, and states she was recovering from a viral illness over a week ago. She otherwise denies chest pain, shortness of breath, dyspnea, nausea, vomiting, diarrhea, abdominal pain, denies weakness or lethargy. ROS All systems reviewed and are negative except as per history of present illness. Medications Home Meds Active Scripts Insulin Glargine,Hum.rec.anlog (Basaglar Kwikpen U-100) 100 Unit/1 Ml Insuln.pen, 33 UNIT SC QAM for 60 Days, EA Prov:SAMEERA MARIO PA-C 08/09/18 Insulin Lispro (Humalog Kwikpen U-100) 100 Unit/1 Ml Insuln.pen, 12 UNIT SQ TIDM A for 30 Days, EA Prov:SAMEERA MARIO-Zach 08/09/18 Reported Medications Insulin Lispro (Humalog) 100 Unit/1 Ml Cartridge, 10 UNIT SQ WITH MEALS, EA 05/23/18 Insulin Glargine,Hum.rec.anlog (Basaglar Kwikpen U-100) 100 Unit/1 Ml Insuln.pen, 30 UNIT SC QAM, EA 05/23/18 Allergies Allergies: Coded Allergies: No Known Allergies (Verified Allergy, Mild, 05/23/18) PMhx/Soc History of Surgery: Yes ( x2 (2010 and 2012)) Anesthesia Reaction: No Hx Neurological Disorder: No Hx Respiratory Disorders: No Hx Cardiac Disorders: No Hx Psychiatric Problems: No Hx Miscellaneous Medical Probl: Yes (C/SECTION X2) Hx Alcohol Use: Yes ("rarely") Hx Substance Use: No Hx Tobacco Use: No Smoking Status: Never smoker FmHx Family History: diabetes; No coronary disease, No other Physical Exam Vitals Vital Signs Date Temp Pulse Resp B/P (MAP) Pulse Ox O2 O2 Flow FiO2 Time Delivery Rate 08/09/18 98.8 107 18 142/87 98 17:22 (105) Physical Exam Const: No acute distress Head: Atraumatic Eyes: Normal Conjunctiva ENT: Normal External Ears, Nose and Mouth. Neck: Full range of motion. No meningismus. Resp: Clear to auscultation bilaterally Cardio: Regular rate and rhythm, no murmurs Abd: Soft, non tender, non distended. Normal bowel sounds Skin: No petechiae or rashes Back: No midline or flank tenderness Ext: No cyanosis, or edema Neur: Awake and alert Psych: Normal Mood and Affect Results 24 hrs Laboratory Tests Test 08/09/18 17:25 08/09/18 22:02 08/09/18 22:50 08/09/18 22:55 Bedside Glucose 373 mg/dL 334 mg/dL 301 mg/dL Urine Color YELLOW Urine Clarity SLIGHTLY CLOUDY Urine pH 6.0 Urine Specific 1.025 [place] Urine Ketones 2+ mg/dL Urine Nitrite POSITIVE mg/dL Urine Bilirubin NEGATIVE mg/dL Urine Urobilinogen NEGATIVE mg/dL Urine Leukocyte NEGATIVE [place]/ul Esterase Urine Microscopic > 182 /HPF RBC Urine Microscopic 37 /HPF WBC Urine Squamous MODERATE /HPF Epithelial Cells Urine Bacteria FEW /HPF Urine Hemoglobin 3+ mg/dL Urine Glucose 3+ mg/dL Urine Total NEGATIVE mg/dl Protein Test 08/09/18 23:26 Bedside Glucose 248 mg/dL Current Medications Medications Dose Sig/Rey Start Time Status Last (Trade) Ordered Route PRN Stop Time Admin Dose Reason Admin Insulin 8 unit ONCE ONCE 08/09/18 DC 08/09/18 Human SC 22:00 22:14 Lispro 08/09/18 22:01 (Humalog) Diagnostic 1 ea 2 HRS AFTER 08/09/18 DC 08/09/18 Test (Pha) HUMALOG ONCE 22:00 22:00 (Accu-Chek) XX 08/09/18 22:01 Procedures/MDM 27-year-old female presents to emergency room for elevated blood sugars after running out of her insulin medications. She has no signs or symptoms which acutely concerning for DKA or any other acute process warranting further emergent care work-up. ED course/plan: Fingerstick of 371, patient got 8 units of lispro with appropriate response, will Rx with home doses of both short acting long-acting insulin, patient advised to follow-up with her PMD for continued care of her diabetes DISPOSITION PLAN: We discussed follow up with the patient's primary care doctor within 24 to 48 hours. Patient counseled regarding my diagnostic impression and care plan. Prior to discharge all questions answered. Pt agrees with treatment plan and understands strict return precautions. Precautionary instructions provided including instructions to return to the ER if not improving or for any worsening or changing symptoms or concerns. Disclaimer: Inadvertent spelling and grammatical errors are likely due to E HR/dictation software use and do not reflect on the overall quality of patient care. Also, please note that the electronic time recorded on this note does not necessarily reflect the actual time of the patient encounter. Departure Diagnosis: Primary Impression: Hyperglycemia Condition: Stable Patient Instructions: Hyperglycemia (High Blood Sugar), Diabetes and Your Child: Preventing Diabetic Ketoacidosis (DKA) Additional Instructions: Call your primary care doctor TOMORROW for an appointment during the next 2-3 days.See the doctor sooner or return here if your condition worsens before your appointment time. SAMEERA MARIO PA-C Aug 09, 2018 21:31
[2018-08-09] MEDS ORDERED: INSULIN LISPRO 100 UNIT/ML VIAL SC ONE (22:00)
[2018-08-09] MEDS ORDERED: ACCU-CHEK XX ONE (22:00)
[2018-08-09] MEDS ORDERED: INSU100I12 SQ (22:02)
[2018-08-09] MEDS ORDERED: INSU100I33 SC (22:02)
[2018-08-09 23:55] VITALS: BP 124/82; PULSE 98; RESP 20
== END 2018-08-09 23:56 | disposition home or self-care (01) ==
LOC: FTE 17:02
DX: E11.65 Type 2 diabetes mellitus with hyperglycemia (principal); Z79.4 Long term (current) use of insulin
CPT/HCPCS: 81001; 82962; 96372; J1815; Z7502